=== PATIENT | female | born 1965 | race Caucasian/White ===

== ENCOUNTER 2016-08-15 09:32 | Emergency (ER) | payer MEDICARE, OTHER ==
[~2016-08-15] VITALS: Ht 165.1 cm; Wt 47.5 kg
[2016-08-15 09:34] VITALS: BP 128/82; PULSE 74; RESP 15; TEMP 97.9; O2SAT 98
--- NOTE | 2016-08-15 09:49 | PD ---
HPI Chief Complaint: Pain: Acute or Chronic Time Seen by Provider: 09:49 Travel History International Travel<30 days: No Contact w/Intl Traveler<30days: No Traveled to known affect area: No History of Present Illness HPI 50-year-old female came to the emergency room with history of left knee pain. Patient says she has been going to physical therapy and since Wednesday something was done to the knee due to which she has been having pain. No history of trauma/fall. Her physical therapist told her that she may have an ACL tear. Patient is also complaining of bilateral hip pain from all the exercise she has been doing. Vital signs are stable. [facility] Past Medical History Narrative Medical List of her past medical, surgical, social and family history was reviewed from the nursing note. Asthma: Yes Autoimmune Disease: Yes (HEP B) Anxiety: Yes Depression: Yes Heart Rhythm Problems: Yes Cardiovascular Problems: Yes Diminished Hearing: No Hepatitis: Yes Medical other: Yes (Crhon,s disease) Psychiatric: Yes Thyroid Disease: No Tetanus Vaccination: > 5 Years Influenza Vaccination: Yes ?: Not Menopausal: Yes Past Surgical History Section: Yes Social History Alcohol Use: Yes (ocassionally ) Tobacco Use: Yes (1/2 pack per day) Substance Use: No Allergies-Medications (Allergen,Severity, Reaction): Coded Allergies: Penicillin (Verified Adverse Reaction, Severe, seizure, 08/15/16) Amoxicillin (Verified Adverse Reaction, Unknown, seizure, 08/15/16) Comments List of her allergies reviewed from the nursing note. Reported Meds & Prescriptions Reported Meds & Active Scripts Active Naprosyn (Naproxen) 500 Mg Tab 500 Mg PO BID Narrative Medication List of her home medications reviewed from the nursing note. Review of Systems Except as stated in HPI: all other systems reviewed are Neg Physical Exam Narrative GENERAL: Awake, alert, no obvious distress SKIN: Focused skin assessment warm/dry. HEAD: Atraumatic. Normocephalic. EYES: Pupils equal and round. No scleral icterus. No injection or drainage. ENT: No nasal bleeding or discharge. Mucous membranes pink and moist. NECK: Trachea midline. No JVD. CARDIOVASCULAR: Regular rate and rhythm. No murmur appreciated. RESPIRATORY: No accessory muscle use. Clear to auscultation. Breath sounds equal bilaterally. GASTROINTESTINAL: Abdomen soft, non-tender, nondistended. Hepatic and splenic margins not palpable. MUSCULOSKELETAL: No obvious deformities. No clubbing. No cyanosis. No edema. Left knee does not show any swelling or effusion. No redness. Slightly decreased range of motion due to the pain. Anterior and posterior drawer test was negative NEUROLOGICAL: Awake and alert. No obvious cranial nerve deficits. Motor grossly within normal limits. Normal speech. PSYCHIATRIC: Appropriate mood and affect; insight and judgment normal. Data Data Last Documented VS Vital Signs Date Time Temp Pulse Resp B/P Pulse Ox O2 Delivery O2 Flow Rate FiO2 08/15/16 12:07 100 08/15/16 09:47 17 08/15/16 09:34 97.9 74 128/82 Orders Knee, Complete (4vws) (08/15/16 ) ^ Knee Immobilizer (08/15/16 11:36) [employer] Request For Service (08/15/16 12:08) Canvas Knee Splint (Cks) (08/15/16 ) Immobilizer Knee 20 Inch (08/15/16 ) MDM Medical Decision Making Medical Screen Exam Complete: Yes Emergency Medical Condition: Yes Medical Record Reviewed: Yes Differential Diagnosis Knee sprain, knee fracture Narrative Course 11:45 AM x-ray was within normal limits. Patient was discharged home on knee immobilizer and prescription for Naprosyn. I have given her the name and number of the orthopedist to follow-up. Procedures EKG Prior to Arrival: No Diagnosis Primary Impression: Knee sprain Qualified Code: S83.92XA - Sprain of left knee, unspecified ligament, initial encounter Referrals: Steve Payan MD 3 days Additional Instructions: Follow up with the orthopedist whose name and number has been given to you in the discharge instructions. Do not take the medications empty stomach. Drink plenty of fluid. Keep the knee immobilizer on at all times except during taking a shower or bath. Med/Other Pt SpecificInfo: Prescription(s) given Scripts Naproxen (Naprosyn)500 Mg [id number] Mg PO BID #30 TAB Ref 0 Prov:David Cabrera MD 08/15/16 Disposition: 01 DISCHARGE HOME Condition: Stable David Cabrera MD Aug 15, 2016 09:49
--- NOTE | 2016-08-15 11:12 | RADRPT ---
EXAM DATE/TIME: 08/15/2016 10:32 [place] COMPARISON: No previous studies available for comparison. INDICATIONS : Left knee pain after fall one week ago. MEDICAL HISTORY : None. SURGICAL HISTORY : None. ENCOUNTER: Initial ACUITY: 1 week PAIN SCORE: 5/10 LOCATION: Left knee. FINDINGS: Four view examination of the left knee demonstrates no evidence of fracture or dislocation. Bony min eralization is normal. The articular surfaces are intact. The suprapatellar soft tissues have a nor mal configuration. CONCLUSION: Negative for fracture or dislocation. Follow up in 7-10 days is suggested if symptoms persist. Christopher Warner MD FACR on August 15, 2016 at 11:10 Board Certified Radiologist. This report was verified electronically.
[2016-08-15] MEDS ORDERED: NAPR500 PO (11:29)
== END 2016-08-15 12:07 | disposition home or self-care (01) ==
LOC: NEPA 09:32
DX: S83.92XA Sprain of unspecified site of left knee, initial encounter (principal); F17.210 Nicotine dependence, cigarettes, uncomplicated; X50.3XXA Overexertion from repetitive movements, initial encounter; Y92.538 Other ambulatory health services establishments as the place of occurrence of the external cause; Y93.B1 Activity, exercise machines primarily for muscle strengthening; Y99.9 Unspecified external cause status
CPT/HCPCS: 73564; 99283; L1830

== ENCOUNTER 2016-08-27 12:14 | Emergency (ER) | payer MEDICARE, OTHER ==
[~2016-08-27] VITALS: Ht 165.1 cm; Wt 47.8 kg
[~2016-08-27 12:14] MED LIST: NAPR500 PO
[2016-08-27 12:16] VITALS: BP 143/86; PULSE 94; RESP 20; TEMP 98.5; O2SAT 100
--- NOTE | 2016-08-27 12:47 | PD ---
Physical Exam Time Seen by Provider: 12:45 Narrative 50 yo F with low back pain and bilat hip pain x 3 days. Hx of hip dyspalsia. Denies injury in last 3 days. Did fall 2 weeks ago. Denies urinary sx. VSS Seen in triage, awaiting bed placement. Data Data Last Documented VS Vital Signs Date Time Temp Pulse Resp B/P Pulse Ox O2 Delivery O2 Flow Rate FiO2 08/27/16 12:16 98.5 94 20 143/86 100 Room Air MDM Supervised Visit with ROSANNE: Tanja Francisco Aug 27, 2016 12:47
--- NOTE | 2016-08-27 13:08 | PD ---
HPI . chronic hip pain Chief Complaint: Pain: Acute or Chronic Time Seen by Provider: 13:08 Travel History International Travel<30 days: No Contact w/Intl Traveler<30days: No Traveled to known affect area: No History of Present Illness HPI 50-year-old female with chronic hip pain here with complaints of pain. Patient tells me that she was seen here in emergency department earlier this month and told that she needs to see orthopedic, however she does not have an appointment until the first of the month and tells me her pain is significantly worse. She is crying and asking for pain control medications. She tells me he does not have a primary care provider and wants us to try to move her appointment earlier. She denies any recent injury or trauma. She was previously seen on August 15, 2016 and told to follow-up with orthopedist. She is following with physical therapy. PFSH Past Medical History Asthma: Yes Autoimmune Disease: Yes (HEP B) Anxiety: Yes Depression: Yes Heart Rhythm Problems: Yes Cardiovascular Problems: Yes Diminished Hearing: No Hepatitis: Yes Psychiatric: Yes Thyroid Disease: No Tetanus Vaccination: < 5 Years Influenza Vaccination: Yes ?: Not Menopausal: Yes Past Surgical History Section: Yes (x2) Social History Alcohol Use: Yes (ocassionally ) Tobacco Use: Yes (1/2 pack per day) Substance Use: No Allergies-Medications (Allergen,Severity, Reaction): Coded Allergies: Penicillin (Verified Adverse Reaction, Severe, seizure, 08/27/16) Amoxicillin (Verified Adverse Reaction, Unknown, seizure, 08/27/16) Reported Meds & Prescriptions Reported Meds & Active Scripts Active Naprosyn (Naproxen) 500 Mg Tab 500 Mg PO BID Review of Systems General / Constitutional: No: Fever Eyes: No: Visual changes HENT: No: Headaches Cardiovascular: No: Chest Pain or Discomfort Respiratory: No: Shortness of Breath Gastrointestinal: No: Abdominal Pain Genitourinary: No: Dysuria Musculoskeletal: Positive: Pain (hip pain) Skin: No Rash Neurologic: No: Weakness Psychiatric: No: Depression Endocrine: No: Polydipsia Hematologic/Lymphatic: No: Easy Bruising Physical Exam Narrative GENERAL: AAO x 3, no acute distress, Well-nourished, well-developed patient. SKIN: Warm and dry. No visible rashes or bruising. HEAD: Normocephalic and atraumatic. EYES: No scleral icterus. No injection or drainage. ENT: No nasal drainage noted. Mucous membranes pink. Airway patent. NECK: Supple, trachea midline. No JVD. CARDIOVASCULAR: Regular rate and rhythm without murmurs, gallops, or rubs. RESPIRATORY: Breath sounds equal bilaterally. No accessory muscle use. No rhonchi or rales. GASTROINTESTINAL: Abdomen soft, non-tender, nondistended. EXTREMITIES: No cyanosis or edema. able to stand without difficulty. hip joint is stable without any laxity. no leg length discrepancy. I checked her sacral area and there is no bruising or pressure ulcer formation BACK: Nontender without obvious deformity. No CVA tenderness. PSYCH: AAO x 3, normal affect. Data Data Last Documented VS Vital Signs Date Time Temp Pulse Resp B/P Pulse Ox O2 Delivery O2 Flow Rate FiO2 08/27/16 12:16 98.5 94 20 143/86 100 Room Air Orders Tramadol (Ultram) (08/27/16 13:15) MDM Medical Decision Making Medical Screen Exam Complete: Yes Emergency Medical Condition: Yes Medical Record Reviewed: Yes Differential Diagnosis acute on chronic pain, less likely fracture, less likely dislocation Narrative Course 50-year-old female with chronic hip pain here with complaints of pain. Patient tells me that she was seen here in emergency department earlier this month and told that she needs to see orthopedic, however she does not have an appointment until the first of the month and tells me her pain is significantly worse. She is crying and asking for pain control medications. She tells me he does not have a primary care provider and wants us to try to move her appointment earlier. She denies any recent injury or trauma. She was previously seen on August 15, 2016 and told to follow-up with orthopedist. She is following with physical therapy. Patient seen and examined. I do not find any acute injuries on examination. Hip xray not warranted as joint is stable, no ecchymosis, no recent injury. Patient in tears requesting rx for pain meds. Explained that I cannot prescribe pain meds or move her appt up earlier. Tramadol in ED. advised to find a PCP locally to help navigate her care. Diagnosis Primary Impression: Chronic hip pain Qualified Code: M25.559 - Chronic hip pain, unspecified laterality Patient Instructions: General Instructions Additional Instructions: Please follow-up with an orthopedist as soon as possible. Try to establish with a local primary care doctor to help navigate your care. Use Tylenol or Motrin as needed for pain control. Med/Other Pt SpecificInfo: No Meds Exist/No RX given Disposition: 01 DISCHARGE HOME Condition: Stable Ivone Armendariz Aug 27, 2016 13:08 Ivone Armendariz Aug 27, 2016 13:08
[2016-08-27] MEDS ORDERED: traMADol HCL 50 MG TAB PO ONE (13:15)
== END 2016-08-27 13:36 | disposition home or self-care (01) ==
LOC: NEPK 12:14
DX: M25.552 Pain in left hip (principal); M25.551 Pain in right hip; M54.5 Low back pain
CPT/HCPCS: 99283

== ENCOUNTER 2016-10-15 10:22 | Inpatient (IN) | payer MEDICARE, OTHER ==
[~2016-10-15] VITALS: Ht 172.7 cm; Wt 50.0 kg
[2016-10-15 10:24] VITALS: BP 108/72; PULSE 104; RESP 18; TEMP 97.8; O2SAT 97
[2016-10-15] MEDS ORDERED: ONDANSETRON HCL 4 MG/2 ML VIAL IVP ONE (10:45)
[2016-10-15] MEDS ORDERED: SODIUM CHLOR 0.9% 1000 ML INJ 1,000 ML IV SCH (10:45)
[2016-10-15] MEDS ORDERED: SODIUM CHLORIDE 0.9% FLUSH 10 ML FLUSH IV FLUSH PRN ×2 (10:45→17:30)
--- NOTE | 2016-10-15 10:57 | PD ---
HPI Chief Complaint: Abdominal Pain Time Seen by Provider: 10:38 Travel History International Travel<30 days: No Contact w/Intl Traveler<30days: No Traveled to known affect area: No History of Present Illness HPI Patient is a 51 year old female with history of borderline DM, visual impairment , Crohn disease and ulcerative colitis and hip dysplasia who presents to ER with c/o of abdominal pain. Patient reports that she has had a colonoscopy by Dr. Cruz on and was told that everything looked good but biopsies were sent and are pending. Reports that she felt fine all weekend, reports that on Wednesday she began to feel sick. Reports that she has been feeling nauseous and has been vomiting since wednesday. Reports that she was able to have a "very small" bowel movement the other day. Reports that she has not been able to keep down any fluids since Wednesday. Reports diffuse abdominal pain. Denies fever/chills. Denies any sick contacts or any recent travels. PFSH Past Medical History Asthma: Yes Autoimmune Disease: Yes (HEP B) Anxiety: Yes Depression: Yes Heart Rhythm Problems: Yes Cardiovascular Problems: Yes Diabetes: Yes Diminished Hearing: No Hepatitis: Yes Psychiatric: Yes Thyroid Disease: No Tetanus Vaccination: Unknown Influenza Vaccination: No ?: Not Menopausal: Yes Tubal Ligation: Yes Past Surgical History Abdominal Surgery: No Section: Yes Social History Alcohol Use: No Tobacco Use: Yes Substance Use: No Allergies-Medications (Allergen,Severity, Reaction): Coded Allergies: Penicillin (Verified Adverse Reaction, Severe, seizure, 10/15/16) Amoxicillin (Verified Adverse Reaction, Unknown, seizure, 10/15/16) Reported Meds & Prescriptions Reported Meds & Active Scripts Active Zofran (Ondansetron HCl) 4 Mg Tab 4 Mg PO Q6HR PRN Reported Buspirone (Buspirone HCl) 5 Mg Tab 5 Mg PO TID Diclofenac Sodium ER 24 HR (Diclofenac Sodium) 100 Mg Willie 100 Mg PO DAILY PRN Trazodone (Trazodone HCl) 50 Mg Tab 50 Mg PO HS PRN Emetrol Oral Solution (Phosporated Carb(Dext-Fructos)) 118 Ml Solution 15-30 Ml PO DIRECTED PRN Do not drink any other fluids right before or for 15 minutes after taking a dose of Emetrol solution. Take Emetrol solution every 15 minutes or until symptoms go away. Do not take Emetrol solution for more than 1 hour (5 doses) without contacting your doctor. [place] (Hydrocodone-Acetaminophen) 5-325 mg Tab 1-2 Tab PO Q4HR PRN Zoloft (Sertraline HCl) 50 Mg Tab 50 Mg PO DAILY Review of Systems General / Constitutional: No: Fever Eyes: No: Visual changes HENT: No: Headaches Cardiovascular: No: Chest Pain or Discomfort Respiratory: No: Shortness of Breath Gastrointestinal: Positive: Nausea, Vomiting, Abdominal Pain Genitourinary: No: Dysuria Musculoskeletal: No: Pain Skin: No Rash Neurologic: No: Weakness Psychiatric: No: Depression Endocrine: No: Polydipsia Hematologic/Lymphatic: No: Easy Bruising Physical Exam Narrative GENERAL: moderate distress SKIN: Focused skin assessment warm/dry. HEAD: Atraumatic. Normocephalic. EYES: Pupils equal and round. No scleral icterus. No injection or drainage. ENT: No nasal bleeding or discharge. Mucous membranes pink and moist. NECK: Trachea midline. No JVD. CARDIOVASCULAR: Tachycardic. No murmur appreciated. RESPIRATORY: No accessory muscle use. Clear to auscultation. Breath sounds equal bilaterally. GASTROINTESTINAL: Abdomen soft, diffuse abdominal pain with guarding on exam hepatic and splenic margins not palpable. MUSCULOSKELETAL: No obvious deformities. No clubbing. No cyanosis. No edema. NEUROLOGICAL: Awake and alert. No obvious cranial nerve deficits. Motor grossly within normal limits. Normal speech. PSYCHIATRIC: Appropriate mood and affect; insight and judgment normal. Data Data Last Documented VS Vital Signs Date Time Temp Pulse Resp B/P Pulse Ox O2 Delivery O2 Flow Rate FiO2 10/15/16 14:18 98.5 105 15 124/86 99 Room Air Orders Complete Blood Count With Diff (10/15/16 10:45) Comprehensive Metabolic Panel (10/15/16 10:45) Lipase (10/15/16 10:45) Lactic Acid (10/15/16 10:45) Prothrombin Time / Inr (Pt) (10/15/16 10:45) Act Partial Throm Time (Ptt) (10/15/16 10:45) Urinalysis - C+S If Indicated (10/15/16 10:45) Ct Abd/Pel W Iv Contrast(Rout) (10/15/16 10:45) Iv Access Insert/Monitor (10/15/16 10:45) Ecg Monitoring (10/15/16 10:45) Oximetry (10/15/16 10:45) NPO (10/15/16 10:45) Ondansetron Inj (Zofran Inj) (10/15/16 10:45) Sodium Chlor 0.9% 1000 Ml Inj (Ns 1000 M (10/15/16 10:45) Sodium Chloride 0.9% Flush (Ns Flush) (10/15/16 10:45) Electrocardiogram (10/15/16 10:45) Chest, Single Ap (10/15/16 10:45) Oral Contrast - Adult (10/15/16 10:52) Blood Culture (10/15/16 12:16) Diatrizoate Liq ( Gastroview Liq) (10/15/16 13:28) Diatrizoate Liq ( Gastroview Liq) (10/15/16 13:29) Ondansetron Inj (Zofran Inj) (10/15/16 14:15) Sodium Chlor 0.9% 1000 Ml Inj (Ns 1000 M (10/15/16 14:15) Iohexol 350 Inj (Omnipaque 350 Inj) (10/15/16 15:02) Lactic Acid Sepsis Protocol (10/15/16 15:35) Urine Culture (10/15/16 15:36) Ceftriaxone Inj (Rocephin Inj) (10/15/16 15:45) Levofloxacin (Levaquin) (10/15/16 15:45) Sodium Chlor 0.9% 1000 Ml Inj (Ns 1000 M (10/15/16 15:45) Labs Laboratory Tests Test 10/15/16 10/15/16 10/15/16 10:45 12:00 15:35 White Blood Count 11.2 TH/MM3 Red Blood Count 4.13 MIL/MM3 Hemoglobin 12.1 GM/DL Hematocrit 37.4 % Mean Corpuscular Volume 90.6 FL Mean Corpuscular Hemoglobin 29.3 PG Mean Corpuscular Hemoglobin 32.4 % Concent Red Cell Distribution Width 18.0 % Platelet Count 299 TH/MM3 Mean Platelet Volume 8.7 FL Neutrophils (%) (Auto) 79.4 % Lymphocytes (%) (Auto) 10.6 % Monocytes (%) (Auto) 9.7 % Eosinophils (%) (Auto) 0.0 % Basophils (%) (Auto) 0.3 % Neutrophils # (Auto) 8.9 TH/MM3 Lymphocytes # (Auto) 1.2 TH/MM3 Monocytes # (Auto) 1.1 TH/MM3 Eosinophils # (Auto) 0.0 TH/MM3 Basophils # (Auto) 0.0 TH/MM3 CBC Comment DIFF FINAL Differential Comment Prothrombin Time 10.4 SEC Prothromb Time International 0.9 RATIO Ratio Activated Partial 24.0 SEC Thromboplast Time Sodium Level 133 MEQ/L Potassium Level 3.2 MEQ/L Chloride Level 96 MEQ/L Carbon Dioxide Level 25.3 MEQ/L Anion Gap 12 MEQ/L Blood Urea Nitrogen 35 MG/DL Creatinine 1.18 MG/DL Estimat Glomerular Filtration 48 ML/MIN Rate Random Glucose 163 MG/DL Lactic Acid Level 2.9 mmol/L 1.0 mmol/L Calcium Level 10.1 MG/DL Total Bilirubin 1.2 MG/DL Aspartate Amino Transf 40 U/L (AST/SGOT) Alanine Aminotransferase 31 U/L (ALT/SGPT) Alkaline Phosphatase 107 U/L Total Protein 9.3 GM/DL Albumin 4.7 GM/DL Lipase 218 U/L Urine Color YELLOW Urine Turbidity HAZY Urine pH 6.5 Urine Specific [place] 1.027 Urine Protein 100 mg/dL Urine Glucose (UA) NEG mg/dL Urine Ketones 10 mg/dL Urine Occult Blood MOD Urine Nitrite NEG Urine Bilirubin NEG Urine Urobilinogen 2.0 MG/DL Urine Leukocyte Esterase MOD Urine RBC 2 /hpf Urine WBC 7 /hpf Urine Squamous Epithelial 10 /hpf Cells Urine Bacteria OCC /hpf Urine Hyaline Casts 8 /lpf Urine Mucus FEW /lpf Urine Yeast (Budding) RARE Microscopic Urinalysis Comment CULT NOT INDICATED MDM Medical Decision Making Medical Screen Exam Complete: Yes Emergency Medical Condition: Yes Interpretation(s) EKG at 1051: Sinus tach at 104bpm, nonspecific st and t wave changes Vital Signs Date Time Temp Pulse Resp B/P Pulse Ox O2 Delivery O2 Flow Rate FiO2 10/15/16 10:33 15 10/15/16 10:24 97.8 104 18 108/72 97 Differential Diagnosis Differential for abdominal pain could be from gastroenteritis, ulcerative colitis, Crohn's disease, ischemic bowel, electrolyte abnormality, UTI, colon perforation from colonscopy though unlikely Narrative Course Patient is a 51 year old female with history of ulcerative colitis and Crohn's disease who presents to ER with complaints of nausea and vomiting since Wednesday. Patient reports that she has not been able to eat or drink anything since then and now has diffuse abdominal pain. Patient did recently have a colonscopy by Dr. Cruz on . Patient is uncomfortable appearing on evaluation. Plan to obtain lab work including x-ray of the chest to rule out free air in the abdomen. CT abdomen and pelvis ordered to rule out further pathology of abdominal pain. We'll give patient IV fluids and IV pain medications Vital Signs Date Time Temp Pulse Resp B/P Pulse Ox O2 Delivery O2 Flow Rate FiO2 10/15/16 14:18 98.5 105 15 124/86 99 Room Air 10/15/16 11:04 98.7 109 18 111/79 100 Room Air 10/15/16 10:33 15 10/15/16 10:24 97.8 104 18 108/72 97 Laboratory Tests Test 10/15/16 10/15/16 10:45 12:00 White Blood Count 11.2 TH/MM3 (4.0-11.0) Red Blood Count 4.13 MIL/MM3 (4.00-5.30) Hemoglobin 12.1 GM/DL (11.6-15.3) Hematocrit 37.4 % (35.0-46.0) Mean Corpuscular Volume 90.6 FL (80.0-100.0) Mean Corpuscular Hemoglobin 29.3 PG (27.0-34.0) Mean Corpuscular Hemoglobin 32.4 % Concent (32.0-36.0) Red Cell Distribution Width 18.0 % (11.6-17.2) Platelet Count 299 TH/MM3 (150-450) Mean Platelet Volume 8.7 FL (7.0-11.0) Neutrophils (%) (Auto) 79.4 % (16.0-70.0) Lymphocytes (%) (Auto) 10.6 % (9.0-44.0) Monocytes (%) (Auto) 9.7 % (0.0-8.0) Eosinophils (%) (Auto) 0.0 % (0.0-4.0) Basophils (%) (Auto) 0.3 % (0.0-2.0) Neutrophils # (Auto) 8.9 TH/MM3 (1.8-7.7) Lymphocytes # (Auto) 1.2 TH/MM3 (1.0-4.8) Monocytes # (Auto) 1.1 TH/MM3 (0-0.9) Eosinophils # (Auto) 0.0 TH/MM3 (0-0.4) Basophils # (Auto) 0.0 TH/MM3 (0-0.2) CBC Comment DIFF FINAL Differential Comment Prothrombin Time 10.4 SEC (9.8-11.6) Prothromb Time International 0.9 RATIO Ratio Activated Partial 24.0 SEC Thromboplast Time (24.3-30.1) Sodium Level 133 MEQ/L (136-145) Potassium Level 3.2 MEQ/L (3.5-5.1) Chloride Level 96 MEQ/L (98-107) Carbon Dioxide Level 25.3 MEQ/L (21.0-32.0) Anion Gap 12 MEQ/L (5-15) Blood Urea Nitrogen 35 MG/DL (7-18) Creatinine 1.18 MG/DL (0.50-1.00) Estimat Glomerular Filtration 48 ML/MIN (>89) Rate Random Glucose 163 MG/DL (74-106) Lactic Acid Level 2.9 mmol/L (0.4-2.0) Calcium Level 10.1 MG/DL (8.5-10.1) Total Bilirubin 1.2 MG/DL (0.2-1.0) Aspartate Amino Transf 40 U/L (15-37) (AST/SGOT) Alanine Aminotransferase 31 U/L (10-53) (ALT/SGPT) Alkaline Phosphatase 107 U/L (45-117) Total Protein 9.3 GM/DL (6.4-8.2) Albumin 4.7 GM/DL (3.4-5.0) Lipase 218 U/L (73-393) Urine Color YELLOW (YELLW/STRAW) Urine Turbidity HAZY (CLEAR) Urine pH 6.5 (5.0-8.5) Urine Specific [place] 1.027 (1.002-1.035) Urine Protein 100 mg/dL (NEG-TRACE) Urine Glucose (UA) NEG mg/dL (NEG) Urine Ketones 10 mg/dL (NEG) Urine Occult Blood MOD (NEG) Urine Nitrite NEG (NEG) Urine Bilirubin NEG (NEG) Urine Urobilinogen 2.0 MG/DL (LESS THAN 2.0) Urine Leukocyte Esterase MOD (NEG) Urine RBC 2 /hpf (0-3) Urine WBC 7 /hpf (0-5) Urine Squamous Epithelial 10 /hpf (0-5) Cells Urine Bacteria OCC /hpf (NONE) Urine Hyaline Casts 8 /lpf (RARE) Urine Mucus FEW /lpf (OCC) Urine Yeast (Budding) RARE (NONE) Microscopic Urinalysis Comment CULT NOT INDICATED Last Impressions Chest X-Ray 10/15/16 1045 Signed Impressions: Service Date/Time: , October 15, 2016 11:00 - CONCLUSION: Old granulomatous disease. No acute cardiopulmonary disease identified. Eugene Delacruz MD CT abdomen and pelvis shows 1. 8 cm left adnexal cystic mass 2. Hepatic steatosis 3. Evidence of chronic pancreatitis 4. Multiple nonobstructing renal calculi I reviewed all CT results as well as incidental findings with patient, a copy of her studies were given to her. Patient reports that she is feeling much better at this time. It is soft, nontender, nondistended, no peritoneal signs. Patient's initial lactic acid was 2.9, I am unsure why this was elevated, there are no signs of any acute intra-abdominal pathology including ischemic gut. Lactic acid could be secondary to hypoperfusion from her nausea vomiting and dehydration. Plan to repeat lactic acid and if negative, will discharge patient to home. Patient was also given a glass of ice water to see if she can tolerate fluids prior to discharge Patient was reevaluated, lactic acid is 1.0, despite 3L IVF, patient still nauseous and vomiting, she is unable to keep down fluids. will require obs Case reviewed with Dr. 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
[2016-10-15 11:04] VITALS: BP 111/79; PULSE 109; RESP 18; TEMP 98.7; O2SAT 100
[2016-10-15] MEDS ORDERED: ZOLO50TA PO (11:19)
[2016-10-15] MEDS ORDERED: NORC5TAB PO (11:20)
[2016-10-15] MEDS ORDERED: BUSP5TAB PO (11:20)
[2016-10-15] MEDS ORDERED: EMETSOL PO (11:20)
[2016-10-15] MEDS ORDERED: TRAZ50TA12 PO (11:20)
[2016-10-15] MEDS ORDERED: DICL100T PO (11:20)
[2016-10-15 11:21] LABS: AUTOMATED NEUTROPHIL # 8.9 TH/MM3 (1.8-7.7); BASOPHIL % 0.3 % (0.0-2.0); HEMATOCRIT 37.4 % (35.0-46.0); HEMO FLAGS DIFF FINAL; LYMPH % 10.6 % (9.0-44.0); LYMPHOCYTE # 1.2 TH/MM3 (1.0-4.8); MEAN CELL VOLUME 90.6 FL (80.0-100.0); MEAN CORPUSCULAR HEMOGLOBIN 29.3 PG (27.0-34.0); MEAN CORPUSCULAR HGB CONC 32.4 % (32.0-36.0); MONO % 9.7 % (0.0-8.0); NEUT % 79.4 % (16.0-70.0); PLATELET COUNT 299 TH/MM3 (150-450); RED BLOOD COUNT 4.13 MIL/MM3 (4.00-5.30); WHITE BLOOD COUNT 11.2 TH/MM3 (4.0-11.0)
--- NOTE | 2016-10-15 11:30 | RADRPT ---
EXAM DATE/TIME: 10/15/2016 11:00 [facility] COMPARISON: No previous studies available for comparison. INDICATIONS : Cough and vomiting since Wednesday. MEDICAL HISTORY : Diabetes mellitus type II. Emphysema. Hepatitis B. Afib. SURGICAL HISTORY : None. ENCOUNTER: Initial ACUITY: 4 - 6 days PAIN SCORE: 0/10 LOCATION: Bilateral chest FINDINGS: Single AP view of the chest. Calcified granuloma in the right upper lung. The lungs are otherwise maria m ar. Cardiomediastinal silhouette within normal limits. No evidence of pleural effusion or pneumothora x. CONCLUSION: Old granulomatous disease. No acute cardiopulmonary disease identified. Eugene Delacruz MD on October 15, 2016 at 11:26 Board Certified Radiologist. This report was verified electronically.
[2016-10-15 11:37] LABS: ALT (GPT) 31 U/L (10-53); ANION GAP 12 MEQ/L (5-15); AST (GOT) 40 U/L (15-37); BICARBONATE 25.3 MEQ/L (21.0-32.0); BLOOD UREA NITROGEN 35 MG/DL (7-18); CHLORIDE 96 MEQ/L (98-107); GLOMERULAR FILTRATION RATE 48 ML/MIN (>89); POTASSIUM 3.2 MEQ/L (3.5-5.1); SODIUM (NA) 133 MEQ/L (136-145)
[2016-10-15 11:39] LABS: ALKALINE PHOSPHATASE 107 U/L (45-117); TOTAL BILIRUBIN ADULT 1.2 MG/DL (0.2-1.0)
[2016-10-15 11:41] LABS: INTERNATIONAL NORMALIZED RATIO 0.9 RATIO; PROTHROMBIN TIME - PATIENT 10.4 SEC (9.8-11.6)
[2016-10-15 12:35] LABS: BACTERIA, URINE OCC /hpf; BLOOD, URINE MOD (NEG); COMMENT (UR) CULT NOT INDICATED; CULTURE IF INDICATED CULT NOT INDICATED; GLUCOSE,URINE NEG (NEG); HYALINE CAST, URINE 8 /lpf (RARE); KETONE, URINE 10 mg/dL (NEG); MUCUS URINE FEW /lpf (OCC); NITRITE,URINE NEG (NEG); PH, URINE 6.5 (5.0-8.5); SQUAMOUS EPITHELIAL CELL URINE 10 /hpf (0-5); URINE COLOR YELLOW (YELLW/STRAW)
[2016-10-15] MEDS ORDERED: DIATRIZOATE MEGLUM/DIATRIZOATE SOD 9 ML CUP ONE ×2 (13:28→13:29)
[2016-10-15] MEDS ORDERED: SODIUM CHLOR 0.9% 1000 ML INJ 1,000 ML IV ONE ×2 (14:15→15:45)
[2016-10-15] MEDS ORDERED: ONDANSETRON HCL 4 MG/2 ML VIAL IV PUSH ONE (14:15)
[2016-10-15 14:18] VITALS: BP 124/86; PULSE 105; RESP 15; TEMP 98.5; O2SAT 99
[2016-10-15] MEDS ORDERED: IOHEXOL 350 MG/ML 10 ML VIAL (for RAD DIAG) IV ONE (15:02)
--- NOTE | 2016-10-15 15:31 | RADRPT ---
EXAM DATE/TIME: 10/15/2016 14:45 [facility] COMPARISON: No previous studies available for comparison. INDICATIONS : Abdomen pain nausea vomiting since Harish. IV CONTRAST: 80 cc Omnipaque 350 (iohexol) IV ORAL CONTRAST: Partial prescribed oral contrast ingested. RADIATION DOSE: 7.76 CTDIvol (mGy) MEDICAL HISTORY : Hepatitis B. Cardiovascular disease Diabetes SURGICAL HISTORY : None. ENCOUNTER: Initial ACUITY: 4 - 6 days PAIN SCALE: 10/10 LOCATION: Abdomen TECHNIQUE: Volumetric scanning of the abdomen and pelvis was performed. Using automated exposure control and ad justment of the mA and/or kV according to patient size, radiation dose was kept as low as reasonably achievable to obtain optimal diagnostic quality images. FINDINGS: LOWER LUNGS: The visualized lower lungs are clear. LIVER: Diffuse fatty infiltration of the liver. No focal mass. Gallbladder is collapsed with nonspecific dif fusely enhancing wall. No pericholecystic inflammatory change seen. SPLEEN: Normal size without lesion. PANCREAS: Multiple calcifications in the pancreatic head suggesting chronic pancreatitis. KIDNEYS: Multiple punctate nonobstructing calculi in the kidneys. ADRENAL GLANDS: Within normal limits. VASCULAR: There is no aortic aneurysm. BOWEL/MESENTERY: No evidence of bowel dilatation. No free air or free fluid. Appendix not identified. ABDOMINAL WALL: Within normal limits. RETROPERITONEUM: There is no lymphadenopathy. BLADDER: No wall thickening or mass. REPRODUCTIVE: 8.2 x 7.6 cm cystic mass in the left adnexa. Uterus and right adnexal regions within normal limits. INGUINAL: There is no lymphadenopathy or hernia. MUSCULOSKELETAL: Within normal limits for patient age. CONCLUSION: 1. 8 cm left adnexal cystic mass. 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 No ascites or lymphadenopathy. 2. Hepatic steatosis. 3. Evidence of chronic pancreatitis. 4. Multiple nonobstructing renal calculi. Eugene Delacruz MD on October 15, 2016 at 15:24 Board Certified Radiologist. This report was verified electronically.
[2016-10-15] MEDS ORDERED: cefTRIAXone INJ 1,000 MG in SODIUM CHLORIDE 0.9% INJ 100 ML IV ONE (15:45)
[2016-10-15] MEDS ORDERED: LEVOFLOXACIN 500 MG TAB PO ONE (15:45)
[2016-10-15] MEDS ORDERED: ZOFR4TAB PO (15:46)
[2016-10-15] MEDS ORDERED: ONDANSETRON HCL 4 MG/2 ML VIAL IV PUSH PRN (18:30)
--- NOTE | 2016-10-15 18:38 | HHI.HP ---
[facility] Service [facility] Primary Care Physician No Primary Care Physician Admission Diagnosis Intractable Nausea and vomiting Diagnoses: Travel History International Travel<30 Days: No Contact w/Intl Traveler <30 Da: No Traveled to Known Affected Are: No Sepsis Criteria SIRS Criteria (2 or more): Heart rate over 90 History of Present Illness Patient is a 51-year-old female with primary medical history of borderline diabetes, Crohn's disease, ulcerative colitis, bilateral hip dysplasia, hepatitis B, hypertension who came into the hospital secondary to worsening abdominal pain, nausea and vomiting. States she has been having abdominal pain for quite some time that she went to her propagator laborer Dr. Ramachandran and had a colonoscopy done last . However, Wednesday she started to have continued abdominal pain, nausea, vomiting unable to hold down any of her food or drinks and is very weak. He reports vomiting every 1-1/2 hour has continued. States that she thought it started to go away but the pain and the nausea and vomiting is worse that she came in to be evaluated. Abdominal pain rated 9/10 radiating to the back, aggravated by mouth intake, unrelieved by anything. Patient has been given Zofran and she states that it helped her with the vomiting she is just nauseous but not as bad. She is also not voiding as much secondary to poor by mouth intake and last good bowel movement was Wednesday. States she has some pasty pudding-like stool occasionally but because she did not have any meals she is expecting smaller BMs. Complains of dizziness when standing up, headaches and believes that this is due to her vomiting. Denies fevers, chills, chest pain, palpitations, dysuria, hematuria. LMP: 12 years ago Labs are reviewed. WBC slightly elevated 11.2, hyponatremia 133, hypokalemia 3.2, chloride 96, BUN 35, creatinine 1.18, glucose 163 Lactate this a.m. 2.9, repeat lactate 1.0 Total bili 1.2, AST 40 Chest x-ray showed old granulomatous disease. No acute cardiopulmonary disease identified Abdominal and pelvic CT showed 1. 8 CM left adnexal cystic mass. 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 No side effects or lymphadenopathy. 2. Hepatic steatosis. 3. Evidence of chronic pancreatitis. 4. Multiple nonobstructing renal calculi Review of Systems Except as stated in HPI: all other systems reviewed are Neg Past Family Social History Past Medical History Borderline diabetes on metformin and dietary control Visual impairment, optic nerve damage genetic Crohn's disease Ulcerative colitis Hip dysplasia bilateral Hep B Ovarian cyst Hypertension Anxiety depression Mitral valve prolapse Past Surgical History Colonoscopy 2 C-sections Right knee repair Reported Medications Reported Meds & Active Scripts Active Zofran (Ondansetron HCl) 4 Mg Tab 4 Mg PO Q6HR PRN Reported Buspirone (Buspirone HCl) 5 Mg Tab 5 Mg PO TID Diclofenac Sodium ER 24 HR (Diclofenac Sodium) 100 Mg Willie 100 Mg PO DAILY PRN Trazodone (Trazodone HCl) 50 Mg Tab 50 Mg PO HS PRN Emetrol Oral Solution (Phosporated Carb(Dext-Fructos)) 118 Ml Solution 15-30 Ml PO DIRECTED PRN Do not drink any other fluids right before or for 15 minutes after taking a dose of Emetrol solution. Take Emetrol solution every 15 minutes or until symptoms go away. Do not take Emetrol solution for more than 1 hour (5 doses) without contacting your doctor. [place] (Hydrocodone-Acetaminophen) 5-325 mg Tab 1-2 Tab PO Q4HR PRN Zoloft (Sertraline HCl) 50 Mg Tab 50 Mg PO DAILY Allergies: Coded Allergies: Penicillin (Verified Adverse Reaction, Severe, seizure, 10/15/16) Amoxicillin (Verified Adverse Reaction, Unknown, seizure, 10/15/16) Active Ordered Medications Current Medications Medications (Trade) Dose Ordered Sig/Jyoti Route Start Time Stop Time Status Last Admin (NS Flush) 2 ml UNSCH PRN IV FLUSH 10/15/16 10:45 (NS Flush) 2 ml UNSCH PRN IV FLUSH 10/15/16 17:30 (NS Flush) 2 ml BID IV FLUSH 10/15/16 21:00 Family History Both grandmothers have diabetes Mother has hypertension Dad Unknown medical history Social History Occasional alcohol use Current Smoker, half a pack a day, trying to quit Denies illicit drug use Physical Exam Vital Signs Vital Signs Date Time Temp Pulse Resp B/P Pulse Ox O2 Delivery O2 Flow Rate FiO2 10/15/16 14:18 98.5 105 15 124/86 99 Room Air 10/15/16 11:04 98.7 109 18 111/79 100 Room Air 10/15/16 10:33 15 10/15/16 10:24 97.8 104 18 108/72 97 Physical Exam GENERAL: This is a pleasant, well-nourished, well-developed patient, in no apparent distress. SKIN: No rashes, ecchymoses or lesions. Warm and dry. HEAD: Atraumatic. Normocephalic. No temporal or scalp tenderness. EYES: Pupils equal round and reactive. Extraocular motions intact. No scleral icterus. No injection or drainage. ENT: Nose without bleeding. Throat without erythema. Uvula midline. Airway patent. NECK: Trachea midline. No JVD or lymphadenopathy. CARDIOVASCULAR: Regular rate and rhythm without 2/6 murmurs, gallops, or rubs. RESPIRATORY: Clear to auscultation. Breath sounds equal bilaterally. No wheezes , rales, or rhonchi. GASTROINTESTINAL: Abdomen soft,nondistended. Tender to light palpation, left lateral and left costovertebral tenderness. MUSCULOSKELETAL: Extremities without clubbing, cyanosis, or edema. No joint tenderness, effusion, or edema noted. NEUROLOGICAL: Awake and alert. Mild anxiety noted. Oriented to place, person, time Motor and sensory grossly within normal limits. Normal speech. Laboratory Laboratory Tests Test 10/15/16 10/15/16 10/15/16 10:45 12:00 15:35 White Blood Count 11.2 Red Blood Count 4.13 Hemoglobin 12.1 Hematocrit 37.4 Mean Corpuscular Volume 90.6 Mean Corpuscular Hemoglobin 29.3 Mean Corpuscular Hemoglobin 32.4 Concent Red Cell Distribution Width 18.0 Platelet Count 299 Mean Platelet Volume 8.7 Neutrophils (%) (Auto) 79.4 Lymphocytes (%) (Auto) 10.6 Monocytes (%) (Auto) 9.7 Eosinophils (%) (Auto) 0.0 Basophils (%) (Auto) 0.3 Neutrophils # (Auto) 8.9 Lymphocytes # (Auto) 1.2 Monocytes # (Auto) 1.1 Eosinophils # (Auto) 0.0 Basophils # (Auto) 0.0 CBC Comment DIFF FINAL Differential Comment Prothrombin Time 10.4 Prothromb Time International 0.9 Ratio Activated Partial 24.0 Thromboplast Time Sodium Level 133 Potassium Level 3.2 Chloride Level 96 Carbon Dioxide Level 25.3 Anion Gap 12 Blood Urea Nitrogen 35 Creatinine 1.18 Estimat Glomerular Filtration 48 Rate Random Glucose 163 Lactic Acid Level 2.9 1.0 Calcium Level 10.1 Total Bilirubin 1.2 Aspartate Amino Transf 40 (AST/SGOT) Alanine Aminotransferase 31 (ALT/SGPT) Alkaline Phosphatase 107 Total Protein 9.3 Albumin 4.7 Lipase 218 Urine Color YELLOW Urine Turbidity HAZY Urine pH 6.5 Urine Specific [place] 1.027 Urine Protein 100 Urine Glucose (UA) NEG Urine Ketones 10 Urine Occult Blood MOD Urine Nitrite NEG Urine Bilirubin NEG Urine Urobilinogen 2.0 Urine Leukocyte Esterase MOD Urine RBC 2 Urine WBC 7 Urine Squamous Epithelial 10 Cells Urine Bacteria OCC Urine Hyaline Casts 8 Urine Mucus FEW Urine Yeast (Budding) RARE Microscopic Urinalysis Comment CULT NOT INDICATED Date/Time Procedure Status Source Growth 10/15/16 12:16 Aerobic Blood Culture Received Blood Peripheral Pending 10/15/16 12:16 Anaerobic Blood Culture Received Blood Peripheral Pending Result Diagram: 10/15/16 1045 10/15/16 1045 Imaging Last Impressions Chest X-Ray 10/15/16 1045 Signed Impressions: Service Date/Time: October 11:00 - CONCLUSION: Old granulomatous disease. No acute cardiopulmonary disease identified. Eugene Delacruz MD Abdomen/Pelvis CT 10/15/16 1045 Signed Impressions: Service Date/Time: October 14:45 - CONCLUSION: 1. 8 cm left adnexal cystic mass. 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 No ascites or lymphadenopathy. 2. Hepatic steatosis. 3. Evidence of chronic pancreatitis. 4. Multiple nonobstructing renal calculi. Eugene Delacruz MD Assessment and Plan Problem List: (1) Intractable nausea and vomiting ICD Code: R11.2 Status: Acute (2) Pancreatitis, chronic ICD Code: K86.1 Status: Acute (3) Pancreatitis, acute ICD Code: K85.90 Status: Acute Assessment and Plan Patient is a 51-year-old female with primary medical history of borderline diabetes, Crohn's disease, ulcerative colitis, bilateral hip dysplasia, hepatitis B, hypertension who came into the hospital secondary to worsening abdominal pain, nausea and vomiting. Pancreatitis, acute on chronic - Abdominal pain, nausea, vomiting, tachycardia - Abdominal and pelvic CT showed 1. 8 CM left adnexal cystic mass. 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 No side effects or lymphadenopathy. 2. Hepatic steatosis. 3. Evidence of chronic pancreatitis. 4. Multiple nonobstructing renal calculi - Lipase 218 - Nothing by mouth for now - Zofran for nausea - Pantoprazole 40 mg IV daily - IV fluids NS 100ml/hr for hydration - IV pain medication morphine - Consult GI Dr. Cha, had colonoscopy done recently Acute kidney injury Tachycardia - Possibly secondary to dehydration - EKG reviewed showed atrial tachycardia with short CO interval, no QT prolongation - IV fluids for hydration - Avoid nephrotoxins - Check BMP Hypokalemia - IV potassium replacement - Check BMP tomorrow Hyponatremia - IV fluids for now - Check BMP tomorrow Cough - Chest x-ray showed old granulomatous disease. No acute cardiopulmonary disease identified - Reports seasonal allergies taking Claritin at home - Start Flonase History of hypertension - Monitor BP trend. Not on any medications History of hepatitis B - Hepatic steatosis. Total bili 1.2, AST 40, ALT 31, alkaline phosphatase 107 Borderline DM - Diet controlled - Check HgA1C - Insulin sliding scale. Monitor Accu-Cheks. - Monitor for hypoglycemia. - If blood glucose is low may change fluids to D5 NS DVT prop SCD Attestation Patient seen and examined with GARRETT Skelton. The exam, history, and the medical decision-making described in the above note were completed with the assistance of the dictating practitioner. I attest that I had a [id number] encounter with the patient on the same day, and personally performed all of the history, exam, or medical decision making. Discussed case with him thoroughly after seeing the patient, reviewed and agreed with the plan. Please see addendum in History, Physical examination and Plan. See below for any errata/ additional input: This is a 51-year-old female with borderline diabetes, Crohn's disease, ulcerative colitis, hepatitis B and hypertension presenting with worsening abdominal pain. She has seen gastroenterology in the past as outpatient. However she continued to have abdominal pain, nausea and vomiting. Patient denies any fever but has a nonproductive cough which she attributes to allergy. Patient denies any diarrhea, urinary symptoms including dysuria frequency and urgency. Mild distress secondary to pain Regular rate and rhythm Clear breath sounds Mild tenderness on palpation of the epigastric area, mild CVA tenderness. Alert awake and oriented. -Nothing by mouth for now, consult GI, continue IVF. Recheck BMP, CBC, and lipase tomorrow. Stop antibiotics. Urinalysis is positive however asymptomatic. Replace electrolytes. Continue normal saline for hyponatremia. Protonix. Code Status Full code Discussed Condition With Patient, nursing, Dr. Dobbs Physician Certification 2 Midnight Certification Type: Admission for Inpatient Services Order for Inpatient Services The services are ordered in accordance with Medicare regulations or non- Medicare payer requirements, as applicable. In the case of services not specified as inpatient-only, they are appropriately provided as inpatient services in accordance with the 2-midnight benchmark. Estimated LOS (days): 2 days is the estimated time the patient will need to remain in the hospital, assuming treatment plan goals are met and no additional complications. Post-Hospital Plan: Home Lalo Cash Oct 15, 2016 18:38 Flavia Dobbs MD Oct 15, 2016 18:58
[2016-10-15] MEDS ORDERED: DEXTROSE 50% IN WATER 50 ML VIAL(D50) IV PRN (18:45)
[2016-10-15] MEDS ORDERED: GLUCAGON 1 MG/ML VIAL OTHER PRN (18:45)
[2016-10-15 19:25] VITALS: BP 118/85; PULSE 93; RESP 18; O2SAT 100
[2016-10-15] MEDS: SODIUM CHLOR 0.9% 1000 ML INJ 1,000 ML IV SCH (19:25)
[2016-10-15] MEDS: PANTOPRAZOLE SODIUM 40 MG VIAL IV PUSH SCH (19:25)
[2016-10-15] MEDS: SODIUM CHLORIDE 0.9% FLUSH 10 ML FLUSH IV FLUSH SCH (21:00)
[2016-10-15] MEDS: INSULIN ASPART SUPPLEMENTAL SCALE SQ SCH (21:00)
[2016-10-15] MEDS: POTASSIUM CHLOR 20 MEQ PREMIX 100 ML IV SCH ×2 (21:40→23:11)
[2016-10-15] MEDS: FLUTICASONE PROPIONATE 50 MCG/ACT 16 GM NASAL SPRAY NASAL SCH (21:41)
[2016-10-15 22:21] LABS: HEMOGLOBIN A1a 1.1 %; HEMOGLOBIN A1b 1.6 %; HEMOGLOBIN Ao 84.3 %; HEMOGLOBIN LA1C 2.8 %; HEMOGLOBIN P3 5.6 %
[2016-10-15] MEDS: MORPHINE SULFATE 8 MG/ML INJ IV PUSH PRN (23:11)
[2016-10-15 23:59] VITALS: BP 136/71; PULSE 92; RESP 20; TEMP 97; O2SAT 97
[2016-10-16] VITALS: BP 113/67; PULSE 84; RESP 20; TEMP 98; O2SAT 95
[2016-10-16 04:00] VITALS: BP 139/79; PULSE 77; RESP 18; TEMP 98; O2SAT 98
[2016-10-16] MEDS: SODIUM CHLOR 0.9% 1000 ML INJ 1,000 ML IV SCH ×3 (05:27→14:07)
[2016-10-16] MEDS: MORPHINE SULFATE 8 MG/ML INJ IV PUSH PRN ×3 (05:37→14:12)
[2016-10-16] MEDS: INSULIN ASPART SUPPLEMENTAL SCALE SQ SCH ×4 (05:46→19:59)
[2016-10-16 08:00] VITALS: BP 121/75; PULSE 75; RESP 20; TEMP 96.8; O2SAT 98
--- NOTE | 2016-10-16 08:18 | HHI.PR ---
Subjective Remarks In bed, says she is still with nausea however did not vomit. Has epigastric abdominal pain radiating to the back. No fever or chills. No chest pain or sob. Objective Vitals Vital Signs Date Time Temp Pulse Resp B/P Pulse Ox O2 Delivery O2 Flow Rate FiO2 10/16/16 05:42 18 10/16/16 04:00 98.0 77 18 139/79 98 10/16/16 00:00 98.0 84 20 113/67 95 10/15/16 23:59 97.0 92 20 136/71 97 10/15/16 19:25 93 18 118/85 100 Room Air 10/15/16 14:18 98.5 105 15 124/86 99 Room Air 10/15/16 11:04 98.7 109 18 111/79 100 Room Air 10/15/16 10:33 15 10/15/16 10:24 97.8 104 18 108/72 97 I/O 10/15/16 10/15/16 10/15/16 10/16/16 10/16/16 10/16/16 07:00 15:00 23:00 07:00 15:00 23:00 Output Total 450 ml Balance -450 ml Output Urine Total 450 ml Result Diagram: 10/15/16 1045 10/15/16 1045 Imaging Last Impressions Chest X-Ray 10/15/16 1045 Signed Impressions: Service Date/Time: October 11:00 - CONCLUSION: Old granulomatous disease. No acute cardiopulmonary disease identified. Eugene Delacruz MD Abdomen/Pelvis CT 10/15/16 1045 Signed Impressions: Service Date/Time: October 14:45 - CONCLUSION: 1. 8 cm left adnexal cystic mass. 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 No ascites or lymphadenopathy. 2. Hepatic steatosis. 3. Evidence of chronic pancreatitis. 4. Multiple nonobstructing renal calculi. Eugene Delacruz MD Objective Remarks GENERAL: This is a pleasant, well-nourished, well-developed patient, in no apparent distress. SKIN: No rashes, ecchymoses or lesions. Warm and dry. CARDIOVASCULAR: Regular rate and rhythm without 2/6 murmurs, gallops, or rubs. RESPIRATORY: Clear to auscultation. Breath sounds equal bilaterally. No wheezes , rales, or rhonchi. GASTROINTESTINAL: Abdomen soft,nondistended. Tender to light palpation, left lateral and left costovertebral tenderness. MUSCULOSKELETAL: Extremities without clubbing, cyanosis, or edema. No joint tenderness, effusion, or edema noted. NEUROLOGICAL: Awake and alert. Oriented to place, person, time. Motor and sensory grossly within normal limits. Normal speech. A/P Problem List: (1) Intractable nausea and vomiting ICD Code: R11.2 Status: Acute (2) Pancreatitis, chronic ICD Code: K86.1 Status: Acute (3) Pancreatitis, acute ICD Code: K85.90 Status: Acute Assessment and Plan Patient is a 51-year-old female with primary medical history of borderline diabetes, Crohn's disease, ulcerative colitis, bilateral hip dysplasia, hepatitis B, hypertension who came into the hospital secondary to worsening abdominal pain, nausea and vomiting. Pancreatitis, acute on chronic Abdominal pain, nausea, vomiting Lactic acid 2.9 on admission, repeat LA back to normal. Abdominal and pelvic CT showed 1. 8 CM left adnexal cystic mass. 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 No side effects or lymphadenopathy. 2. Hepatic steatosis. 3. Evidence of chronic pancreatitis. 4. Multiple nonobstructing renal calculi Lipase 218, trend Nothing by mouth, advance diet as tolerated to CLD Zofran for nausea Pantoprazole 40 mg IV daily IV fluids NS 100ml/hr for hydration IV pain medication morphine Consult GI Dr. Cha, her GI, had recent colonoscopy Acute kidney injury, improving Tachycardia- resolved Possibly secondary to dehydration EKG reviewed showed atrial tachycardia with short SC interval, no QT prolongation Continue IV fluids for hydration Avoid nephrotoxins Monitor kidney indices Hypokalemia Replaced with IV potassium on admission Monitor and replace as need Hyponatremia IV fluids for now Check BMP tomorrow Cough Chest x-ray showed old granulomatous disease. No acute cardiopulmonary disease identified Reports seasonal allergies taking Claritin at home Cont Flonase History of hypertension Monitor BP trend. Not on any medications History of hepatitis B Hepatic steatosis. Total bili 1.2, AST 40, ALT 31, alkaline phosphatase 107 on admission. Monitor. Borderline DM Diet controlled Check HgA1C Insulin sliding scale. Monitor Accu-Cheks. Monitor for hypoglycemia. If blood glucose is low may change fluids to D5 NS DVT prop SCD Code Status Full code Discussed Condition With Patient, nurse Magy Sinclair MD Oct 16, 2016 08:18
[2016-10-16 08:42] LABS: HEMATOCRIT 31.3 % (35.0-46.0); MEAN CELL VOLUME 92.2 FL (80.0-100.0); MEAN CORPUSCULAR HEMOGLOBIN 29.8 PG (27.0-34.0); MEAN CORPUSCULAR HGB CONC 32.3 % (32.0-36.0); PLATELET COUNT 187 TH/MM3 (150-450); RED CELL DISTRIBUTION WIDTH 17.7 % (11.6-17.2); REVIEW FLAG FINAL
[2016-10-16] MEDS ORDERED: MISCELLANEOUS NURSING INFORMATION ONE (09:00)
[2016-10-16 09:31] LABS: ALKALINE PHOSPHATASE 76 U/L (45-117); ALT (GPT) 25 U/L (10-53); ANION GAP 9 MEQ/L (5-15); AST (GOT) 32 U/L (15-37); BLOOD UREA NITROGEN 16 MG/DL (7-18); CHLORIDE 105 MEQ/L (98-107); GLOMERULAR FILTRATION RATE 101 ML/MIN (>89); SODIUM (NA) 139 MEQ/L (136-145); TOTAL BILIRUBIN ADULT 0.8 MG/DL (0.2-1.0)
[2016-10-16] MEDS: FLUTICASONE PROPIONATE 50 MCG/ACT 16 GM NASAL SPRAY NASAL SCH ×2 (09:58→23:03)
[2016-10-16] MEDS: SODIUM CHLORIDE 0.9% FLUSH 10 ML FLUSH IV FLUSH SCH ×2 (09:59→23:04)
[2016-10-16] MEDS: NICOTINE 7 MG/24 HR PATCH T-DERMAL SCH (10:07)
--- NOTE | 2016-10-16 10:43 | PD.CONS ---
GI Consult GI Consult Full consult dictated ASSESSMENT/PLAN: 1. N/v resolved 2. Chronic pancreatitis 3. 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 recent EGD/colon negative bx for celiac, Crohn's disease or ulcerative colitis 5. ETOh use 6. ovarian mass PLAN 1. CLD advance as tolerated 2. Creon panc enzymes 3. Your workup for ovarian mass. It was a pleasure seeing Jeff Rabago . Thank you for this consult. Entered by: Vernell Baez MD Oct 16, 2016 10:43
[2016-10-16 12:00] VITALS: BP 119/55; PULSE 76; RESP 20; TEMP 97.3; O2SAT 100
--- NOTE | 2016-10-16 12:17 | EKG ---
Date Performed: 10/15/2016 Time Performed: 10:51:21 PTAGE: 51 years EKG: ECTOPIC ATRIAL TACHYCARDIA WITH SHORT [place] INTERVAL NONSPECIFIC ST & T-WAVE ABNORMALITY ABNOR MAL RHYTHM ECG Compared to prior tracing no significant change PREVIOUS TRACING : 08/07/2004 08.30 DOCTOR: Jose C Redding Interpretating Date/Time 10/16/2016 12:17:05
[2016-10-16] MEDS: LIPASE/PROTEASE/AMYLASE (24,000/76,000/120,000) CAP PO SCH ×2 (14:14→19:00)
--- NOTE | 2016-10-16 14:47 | MB ---
cc: JOSEY HUIZAR DATE OF CONSULTATION: 10/16/2016 DATE OF : 1965 ENDOSCOPIST: Josey Huizar MD. PRIMARY GASTROINTESTINAL PHYSICIAN: Dr. Shabbir Ramachandran. REASON FOR CONSULTATION Nausea and vomiting, abdominal discomfort, diarrhea, this is a 51 year-old female who was recently seen in the office, From the abdominal discomfort diarrhea this is a 51-year-old female who was recently seen in the office with Dr. Ramachandran for longstanding history of diarrhea, abdominal discomfort, questionable history of inflammatory bowel disease. She apparently has been told of Crohn disease or ulcer colitis 20+ years ago. She was requested to undergo workup including detailed lab work, Stool studies, imaging tests, and endoscopy and colonoscopy. She did not complete any of her lab work, but it eventually undergo an esophagogastroduodenoscopy and colonoscopy most recently on the October 08. The esophagogastroduodenoscopy is significant for gastritis, biopsy negative for H pylori biopsies of the small bowel negative for celiac disease or evidence of inflammatory bowel disease. Her colonoscopy was also done which was normal term and ileum and normal. Random biopsies throughout the colon did not reveal evidence of microscopic colitis or inflammatory bowel disease. No clear endoscopic evidence of Crohn's or ulcerative last was noted. She had a relatively to associate uncomplicated postop. And was discharged home several days after she came back to after she came to the emergency room complaining of abdominal discomfort and persistent nausea and vomiting, intractable day. 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 No ascites. No lymphadenopathy was noted hepatic steatosis was noted evidence of chronic pancreatitis and multiple renal calculi was identified. Specifically in the pancreas multiple calcifications were identified in the head of pancreas suggesting chronic pancreatitis. GI was consulted for further workup and help in management in the during the admission she has she has been receiving IV fluids with improvement of her nausea, vomiting. PAST MEDICAL HISTORY 1. Diabetes mellitus 2. visual impairment 3. Questionable history of inflammatory bowel disease, although recent endoscopy and tells to reveal any abnormalities. 4. History of hepatitis B 5. Hypertension 6. Anxiety, depression. 7. Mitral valve prolapse. PAST SURGICAL HISTORY x2, right knee repair recent EGD and colonoscopy on October 08 as described above. ALLERGIES PENICILLIN AMOXICILLIN Unclear reaction. HOME MEDICATIONS: Please see MAR for complete list; some of the ones reported are; 1. Bupropion 2. Diclofenac 3. trazodone 4. Emetrol 5. [place] 6. Zoloft FAMILY HISTORY: 1. family history of diabetes. 2. No GI malignancies. SOCIAL HISTORY Half pack a day smoking history. No illicit drug use, has been a heavy drinker for multiple years recently she admitted that she cut down her drinking to only on weekends today she tells me that she has not drank in the last one month. REVIEW OF SYSTEMS 12 point review of system was obtained which was negative or noncontributory except for the above-mentioned in the history of present illness. PHYSICAL EXAMINATION VITAL SIGNS: 96.8, 75, 20, 121/75, 98% on room air. IN GENERAL: Alert oriented. No focal deficits, mucosa moist and pink. HEAD, EYES, EARS, NOSE, AND THROAT: Extraocular movements are spontaneous, intact. NECK: No cervical lymphadenopathy. No jugular venous distention noted. No bruits noted. CARDIOVASCULAR SYSTEM: Normal rate, rhythm. RESPIRATORY: No wheezing, respirations nonlabored. ABDOMEN: The abdomen is soft, nontender, nondistended, bowels sounds in all four quadrants. No splenomegaly appreciated. Slight hepatomegaly noted. No periumbilical ecchymosis. GENITOURINARY: No costovertebral angle tenderness noted. LYMPHATICS: No lymphadenopathy identified. MUSCULOSKELTAL: Equal in the upper and lower extremities. NEUROLOGIC: Alert and oriented, no focal deficits. PSYCHIATRIC: Psychiatric cooperative, appropriate mood affect. LABORATORY DATA WBC 7, hemoglobin 10.1 platelet count of 187, sodium 130 potassium 3.0, chloride 105, bicarb 25, BUN 16, creatinine 0.62, AST 32, ALT 25, alk phos 76, lipase 218, total protein 3.3, total bili 0.8, lactic acid 1.0, INR 0.9. Urinalysis positive moderate leukocyte esterase IMPRESSION 1. Episodic nausea, vomiting, currently resolved etiology may be secondary to chronic pancreatitis. 2. Chronic pancreatitis changes noted on CT scan, likely the cause of some of her symptoms including; nausea and vomiting, intermittent pain and diarrhea, secondary to longstanding alcohol abuse. 1. Longstanding history diarrhea. With recent endoscopic workup is negative for inflammatory bowel disease or microscopic colitis. Suspect secondary to chronic exocrine pancreatic insufficiency. 2. Alcohol abuse in the past. 3. Several CT scan showing an adnexal mass which may need further workup. RECOMMENDATIONS 1. Continue IV hydration. 2. Start clear liquid diet advanced as tolerated. 3. Will start pancreatic enzymes Creon 24,000 units 2 tablets with meal one with a snack, may go up to 36,000, lipase units, if available on formulary. 4. Stool studies including fecal elastase. 5. ER further workup for the had adnexal ovarian mass. 6. No urgent endoscopic workup needed at this time. Thank you for allowing <<9:11>> clinic to participate in the care of the patient. We will follow along with you to make recommendation as per the patients clinical course. MD JERICHO Nixon/gregoria /10:33 AM /2:11 PM
[2016-10-16 16:11] VITALS: BP 118/71; PULSE 71; RESP 20; TEMP 96.6; O2SAT 95
[2016-10-16] MEDS ORDERED: POTASSIUM CHLORIDE 10 MEQ CONTROLLED RELEASE TAB PO ONE (17:00)
[2016-10-16] MEDS: PANTOPRAZOLE SODIUM 40 MG VIAL IV PUSH SCH (19:00)
[2016-10-16 20:00] VITALS: BP 110/64; PULSE 80; RESP 18; TEMP 97.3; O2SAT 98
[2016-10-16] MEDS: REMOVE OLD PATCH T-DERMAL SCH (21:00)
[2016-10-17] MEDS: MORPHINE SULFATE 8 MG/ML INJ IV PUSH PRN ×2 (02:42→21:59)
[2016-10-17] MEDS: INSULIN ASPART SUPPLEMENTAL SCALE SQ SCH ×4 (06:18→21:55)
[2016-10-17 08:00] VITALS: BP 104/60; PULSE 77; RESP 20; TEMP 98; O2SAT 99
[2016-10-17] MEDS: FLUTICASONE PROPIONATE 50 MCG/ACT 16 GM NASAL SPRAY NASAL SCH ×2 (09:00→21:55)
[2016-10-17] MEDS: LIPASE/PROTEASE/AMYLASE (24,000/76,000/120,000) CAP PO SCH ×3 (09:00→17:22)
[2016-10-17] MEDS: NICOTINE 7 MG/24 HR PATCH T-DERMAL SCH (09:00)
[2016-10-17 09:17] LABS: ANION GAP 9 MEQ/L (5-15); AST (GOT) 29 U/L (15-37); BLOOD UREA NITROGEN 9 MG/DL (7-18); CHLORIDE 107 MEQ/L (98-107); GLOMERULAR FILTRATION RATE 127 ML/MIN (>89); POTASSIUM 3.2 MEQ/L (3.5-5.1); SODIUM (NA) 141 MEQ/L (136-145)
[2016-10-17 09:24] LABS: ALKALINE PHOSPHATASE 71 U/L (45-117); ALT (GPT) 24 U/L (10-53); TOTAL BILIRUBIN ADULT 0.4 MG/DL (0.2-1.0)
[2016-10-17] MEDS ORDERED: CREON24 PO (10:36)
[2016-10-17] MEDS ORDERED: NICO1DIS8 T-DERMAL (10:36)
[2016-10-17] MEDS ORDERED: FLUT50SP NASAL (10:38)
[2016-10-17] MEDS ORDERED: NORC5TAB PO (10:38)
--- NOTE | 2016-10-17 10:38 | HHI.DS ---
Discharge Summary Admission Date Oct 15, 2016 at 17:24 Discharge Date: Oct 18, 2016 Admitting Diagnosis Intractable Nausea and vomiting (1) Intractable nausea and vomiting ICD Code: R11.2 Diagnosis: Principal (2) Pancreatitis, chronic ICD Code: K86.1 Diagnosis: Secondary (3) Pancreatitis, acute ICD Code: K85.90 Procedures none Brief History - From Admission Patient is a 51-year-old female with primary medical history of borderline diabetes, Crohn's disease, ulcerative colitis, bilateral hip dysplasia, hepatitis B, hypertension who came into the hospital secondary to worsening abdominal pain, nausea and vomiting. 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 Ramachandran and had a colonoscopy done last . However, Wednesday she started to have continued abdominal pain, nausea, vomiting unable to hold down any of her food or drinks and is very weak. He reports vomiting every 1-1/2 hour has continued. States that she thought it started to go away but the pain and the nausea and vomiting is worse that she came in to be evaluated. Abdominal pain rated 9/10 radiating to the back, aggravated by mouth intake, unrelieved by anything. Patient has been given Zofran and she states that it helped her with the vomiting she is just nauseous but not as bad. She is also not voiding as much secondary to poor by mouth intake and last good bowel movement was Wednesday. States she has some pasty pudding-like stool occasionally but because she did not have any meals she is expecting smaller BMs. Complains of dizziness when standing up, headaches and believes that this is due to her vomiting. Denies fevers, chills, chest pain, palpitations, dysuria, hematuria. LMP: 12 years ago Labs are reviewed. WBC slightly elevated 11.2, hyponatremia 133, hypokalemia 3.2, chloride 96, BUN 35, creatinine 1.18, glucose 163 Lactate this a.m. 2.9, repeat lactate 1.0 Total bili 1.2, AST 40 Chest x-ray showed old granulomatous disease. No acute cardiopulmonary disease identified Abdominal and pelvic CT showed 1. 8 CM left adnexal cystic mass. 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 No side effects or lymphadenopathy. 2. Hepatic steatosis. 3. Evidence of chronic pancreatitis. 4. Multiple nonobstructing renal calculi CBC/BMP: 10/16/16 0808 10/17/16 0714 Significant Findings Laboratory Tests Test 10/15/16 10/15/16 10/16/16 10/17/16 10:45 12:00 08:08 07:14 White Blood Count 11.2 TH/MM3 (4.0-11.0) Red Cell Distribution Width 18.0 % 17.7 % (11.6-17.2) (11.6-17.2) Neutrophils (%) (Auto) 79.4 % (16.0-70.0) Monocytes (%) (Auto) 9.7 % (0.0-8.0) Neutrophils # (Auto) 8.9 TH/MM3 (1.8-7.7) Monocytes # (Auto) 1.1 TH/MM3 (0-0.9) Activated Partial 24.0 SEC Thromboplast Time (24.3-30.1) Sodium Level 133 MEQ/L (136-145) Potassium Level 3.2 MEQ/L 3.0 MEQ/L 3.2 MEQ/L (3.5-5.1) (3.5-5.1) (3.5-5.1) Chloride Level 96 MEQ/L (98-107) Blood Urea Nitrogen 35 MG/DL (7-18) Creatinine 1.18 MG/DL (0.50-1.00) Estimat Glomerular Filtration 48 ML/MIN (>89) Rate Random Glucose 163 MG/DL (74-106) Lactic Acid Level 2.9 mmol/L (0.4-2.0) Total Bilirubin 1.2 MG/DL (0.2-1.0) Aspartate Amino Transf 40 U/L (15-37) (AST/SGOT) Total Protein 9.3 GM/DL 6.1 GM/DL (6.4-8.2) (6.4-8.2) Urine Turbidity HAZY (CLEAR) Urine Protein 100 mg/dL (NEG-TRACE) Urine Ketones 10 mg/dL (NEG) Urine Occult Blood MOD (NEG) Urine Leukocyte Esterase MOD (NEG) Urine WBC 7 /hpf (0-5) Urine Bacteria OCC /hpf (NONE) Urine Mucus FEW /lpf (OCC) Urine Yeast (Budding) RARE (NONE) Red Blood Count 3.40 MIL/MM3 (4.00-5.30) Hemoglobin 10.1 GM/DL (11.6-15.3) Hematocrit 31.3 % (35.0-46.0) Calcium Level 8.4 MG/DL (8.5-10.1) Albumin 3.3 GM/DL 3.1 GM/DL (3.4-5.0) (3.4-5.0) Imaging Last Impressions Chest X-Ray 10/15/16 1045 Signed Impressions: Service Date/Time: October 11:00 - CONCLUSION: Old granulomatous disease. No acute cardiopulmonary disease identified. Eugene Delacruz MD Abdomen/Pelvis CT 10/15/16 1045 Signed Impressions: Service Date/Time: October 14:45 - CONCLUSION: 1. 8 cm left adnexal cystic mass. 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 No ascites or lymphadenopathy. 2. Hepatic steatosis. 3. Evidence of chronic pancreatitis. 4. Multiple nonobstructing renal calculi. Eugene Delacruz MD PE at Discharge GENERAL: This is a pleasant, well-nourished, well-developed patient, in no apparent distress. SKIN: No rashes, ecchymoses or lesions. Warm and dry. CARDIOVASCULAR: Regular rate and rhythm without 2/6 murmurs, gallops, or rubs. RESPIRATORY: Clear to auscultation. Breath sounds equal bilaterally. No wheezes , rales, or rhonchi. GASTROINTESTINAL: Abdomen soft,nondistended. Tender to light palpation, left lateral and left costovertebral tenderness. MUSCULOSKELETAL: Extremities without clubbing, cyanosis, or edema. No joint tenderness, effusion, or edema noted. NEUROLOGICAL: Awake and alert. Oriented to place, person, time. Motor and sensory grossly within normal limits. Normal speech. Pt update on day of discharge Feels much better , tolerates regular food . Less nausea. No more diarrhea after cholestyramine started. No fever or chills. Abd pain improved. Feels comfortable to go home. Will follow up as OP with DR Duarte JACOB and also to follow up as OP with PCP and compliance quality performance analyst for further eval of cystic mass Hospital Course Patient is a 51-year-old female with primary medical history of borderline diabetes, Crohn's disease, ulcerative colitis, bilateral hip dysplasia, hepatitis B, hypertension who came into the hospital secondary to worsening abdominal pain, nausea and vomiting. Pancreatitis, acute on chronic Abdominal pain, nausea, vomiting Lactic acid 2.9 on admission, repeat LA back to normal. 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 Consult compliance quality performance analyst/onc for evaluation. Abdominal and pelvic CT showed 1. 8 CM left adnexal cystic mass. 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 No side effects or lymphadenopathy. 2. Hepatic steatosis. 3. Evidence of chronic pancreatitis. 4. Multiple nonobstructing renal calculi Lipase 218 Tolerates diet to diabetic diet Zofran for nausea Pantoprazole 40 mg daily IV fluids NS 100ml/hr for hydration, DC as takes po IV pain medication morphine GI added creon by GI , also added colestyramine. Consult GI Dr. Ramachandran, her GI, had recent colonoscopy Seen by Dr Angelina JACOB . Recommends creon and colestyramine, prescriptions at discharge provided. Patient to follow up as OP with Dr Ramachandran Acute kidney injury, resolved with IVF Tachycardia- resolved Possibly secondary to dehydration EKG reviewed showed atrial tachycardia with short OK interval, no QT prolongation Continue IV fluids for hydration Avoid nephrotoxins Monitor kidney indices Hypokalemia Replaced with IV potassium on admission Monitor and replace as need Hyponatremia IV fluids for now Check BMP tomorrow Cough Chest x-ray showed old granulomatous disease. No acute cardiopulmonary disease identified Reports seasonal allergies taking Claritin at home Cont Flonase History of hypertension Monitor BP trend. Not on any medications History of hepatitis B Hepatic steatosis. Total bili 1.2, AST 40, ALT 31, alkaline phosphatase 107 on admission. Monitor. Borderline DM Diet controlled Check HgA1C Insulin sliding scale. Monitor Accu-Cheks. Monitor for hypoglycemia. DVT prop SCD Improved. Discharge home in stable condition. To follow up as OP with DR Duarte JACOB and also to follow up as OP with PCP and compliance quality performance analyst for further eval of cystic mass Pt Condition on Discharge: Stable Discharge Disposition: Discharge Home Discharge Time: > 30 minutes Discharge Instructions DIET: Follow Instructions for: Diabetic Diet Activities you can perform: Regular-No Restrictions Follow up Referrals: Gastroenterology - 2 Weeks [employer] - 1 Week PCP Follow-up - 3-5 Days New Medications: Cholestyramine (Cholestyramine) 4 Gm/Pkt Powd 4 GM PO Q8HR for digestion #90 PKT Fluticasone Nasal [place] (Fluticasone Nasal [place]) 50 Mcg/Act Naspr 1 SPRAY NASAL BID runny nose Days 30 BOTTLE Nicotine (Eq Nicotine Step 3) 7 Mg/24 Hr Dis 1 PATCH T-DERMAL DAILY smoking cessation #30 PATCH Pancrelipase (Creon) 24,000-76,000-120,000 Units Cap 2 CAP PO TID pancreatitis #90 CAP Continued Medications: Buspirone (Buspirone) 5 Mg Tab 5 MG PO TID Anxiety Ref 0 TAB Diclofenac Sodium ER 24 HR (Diclofenac Sodium ER 24 HR) 100 Mg Willie 100 MG PO DAILY PRN PAIN Ref 0 TAB Hydrocodone-Acetaminophen ([place]) 5-325 mg Tab 1-2 TAB PO Q4HR PRN PAIN #10 Ref 0 TAB (This prescription has been renewed) Ondansetron (Zofran) 4 Mg Tab 4 MG PO Q6HR PRN NAUSEA OR VOMITING #30 Ref 0 TAB Phosporated Carb(Dext-Fructos) (Emetrol Oral Solution) 118 Ml Solution 15-30 ML PO DIRECTED Do not drink any other fluids right before or for 15 minutes after taking a dose of Emetrol solution. Take Emetrol solution every 15 minutes or until symptoms go away. Do not take Emetrol solution for more than 1 hour (5 doses) without contacting your doctor. PRN NAUSEA OR VOMITING Sertraline (Zoloft) 50 Mg Tab 50 MG PO DAILY #30 Ref 0 TAB Trazodone (Trazodone) 50 Mg Tab 50 MG PO HS PRN SLEEP #30 Ref 0 TAB Magy Sinclair MD Oct 17, 2016 10:38
--- NOTE | 2016-10-17 10:41 | HHI.PR ---
Subjective Remarks In bed, tolerates CLD. Advance diet to regular diabetic diet. Patient still with some abdominal pain and nausea. Says she did not have any vomiting since yesterday in the afternoon. No fever or chills. Says she had diarrhea. Objective Vitals Vital Signs Date Time Temp Pulse Resp B/P Pulse Ox O2 Delivery O2 Flow Rate FiO2 10/17/16 08:00 98.0 77 20 104/60 99 10/17/16 02:47 18 10/16/16 20:00 97.3 80 18 110/64 98 10/16/16 16:11 96.6 71 20 118/71 95 10/16/16 12:00 97.3 76 20 119/55 100 Result Diagram: 10/16/16 0808 10/17/16 0714 Imaging Last Impressions Chest X-Ray 10/15/16 1045 Signed Impressions: Service Date/Time: , October 15, 2016 11:00 - CONCLUSION: Old granulomatous disease. No acute cardiopulmonary disease identified. Eugene Delacruz MD Abdomen/Pelvis CT 10/15/16 1045 Signed Impressions: Service Date/Time: , October 15, 2016 14:45 - CONCLUSION: 1. 8 cm left adnexal cystic mass. 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 No ascites or lymphadenopathy. 2. Hepatic steatosis. 3. Evidence of chronic pancreatitis. 4. Multiple nonobstructing renal calculi. Eugene Delacruz MD Objective Remarks GENERAL: This is a pleasant, well-nourished, well-developed patient, in no apparent distress. SKIN: No rashes, ecchymoses or lesions. Warm and dry. CARDIOVASCULAR: Regular rate and rhythm without 2/6 murmurs, gallops, or rubs. RESPIRATORY: Clear to auscultation. Breath sounds equal bilaterally. No wheezes , rales, or rhonchi. GASTROINTESTINAL: Abdomen soft,nondistended. Tender to light palpation, left lateral and left costovertebral tenderness. MUSCULOSKELETAL: Extremities without clubbing, cyanosis, or edema. No joint tenderness, effusion, or edema noted. NEUROLOGICAL: Awake and alert. Oriented to place, person, time. Motor and sensory grossly within normal limits. Normal speech. A/P Problem List: (1) Intractable nausea and vomiting ICD Code: R11.2 Status: Acute (2) Pancreatitis, chronic ICD Code: K86.1 Status: Acute (3) Pancreatitis, acute ICD Code: K85.90 Status: Acute Assessment and Plan Patient is a 51-year-old female with primary medical history of borderline diabetes, Crohn's disease, ulcerative colitis, bilateral hip dysplasia, hepatitis B, hypertension who came into the hospital secondary to worsening abdominal pain, nausea and vomiting. Pancreatitis, acute on chronic Abdominal pain, nausea, vomiting Lactic acid 2.9 on admission, repeat LA back to normal. 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 Consult advice clerk/onc for evaluation. Abdominal and pelvic CT showed 1. 8 CM left adnexal cystic mass. 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 No side effects or lymphadenopathy. 2. Hepatic steatosis. 3. Evidence of chronic pancreatitis. 4. Multiple nonobstructing renal calculi Lipase 218 Advance diet to diabetic diet Zofran for nausea Pantoprazole 40 mg IV daily IV fluids NS 100ml/hr for hydration IV pain medication morphine Added creon by GI , also added colestyramine. Consult GI Dr. Cha, her GI, had recent colonoscopy Acute kidney injury, resolved with IVF Tachycardia- resolved Possibly secondary to dehydration EKG reviewed showed atrial tachycardia with short DC interval, no QT prolongation Continue IV fluids for hydration Avoid nephrotoxins Monitor kidney indices Hypokalemia Replaced with IV potassium on admission Monitor and replace as need Hyponatremia IV fluids for now Check BMP tomorrow Cough Chest x-ray showed old granulomatous disease. No acute cardiopulmonary disease identified Reports seasonal allergies taking Claritin at home Cont Flonase History of hypertension Monitor BP trend. Not on any medications History of hepatitis B Hepatic steatosis. Total bili 1.2, AST 40, ALT 31, alkaline phosphatase 107 on admission. Monitor. Borderline DM Diet controlled Check HgA1C Insulin sliding scale. Monitor Accu-Cheks. Monitor for hypoglycemia. DVT prop SCD Code Status Full code Discussed Condition With Patient, nurse, GI service DC plan: Poss DC tomorrow if continues to improve, tolerates food and cleared by consultants (GI and advice clerk/onc ) Magy Sinclair MD Oct 17, 2016 10:40
--- NOTE | 2016-10-17 11:20 | HHI.GIFU ---
GI Follow-up Note Consult Follow-up Subjective: Patient laying in bed comfortably, no new complaints; still passing watery stool. She hasn't had a solid meal yet. Creon was started yesterday. Objective: PHYSICAL EXAMINATION: Vitals signs stable No fever HEENT: no jaundice. ABDOMEN: Soft, nondistended, mildly tender diffusely, mostly in the epigastrium SKIN: no jaundice. OFFICE CLIN ASST: alert and oriented times three. Available Data (labs, X- Rays, Procedues) : Labs reviewed. ASSESSMENT/PLAN:Chronic diarrhea, with weight loss, nausea/emesis and abdominal pain with radiation to her back. Endoscopic/colonoscopic findings/biopsies unremarkable. Studies negative for celiac disease. She has chronic calcific pancreatitis and a history of heavy alcohol use. We discussed this condition in detail. We'll continue the Creon, but we may need to increase the dose (one with the first bite of each meal and a second custodial into the meal.) We'll start cholestyramine to help bind the fluid. If the diarrhea improves, she may go home and follow up with Dr. Ramachandran. It was a pleasure seeing Jeff Rabago. . Entered by: Waqas Brand MD Oct 17, 2016 11:20
[2016-10-17 12:00] VITALS: BP 124/64; PULSE 83; RESP 20; TEMP 98.4; O2SAT 99
[2016-10-17] MEDS: CHOLESTYRAMINE 4 GM PACKET PO SCH ×2 (13:09→21:55)
[2016-10-17] MEDS ORDERED: POTASSIUM CHLORIDE 10 MEQ CONTROLLED RELEASE TAB PO ONE (14:15)
[2016-10-17 16:00] VITALS: BP 144/74; PULSE 78; RESP 20; TEMP 100; O2SAT 100
[2016-10-17] MEDS: ACETAMINOPHEN 325 MG TAB PO PRN (17:22)
[2016-10-17] MEDS: PANTOPRAZOLE SODIUM 40 MG VIAL IV PUSH SCH (17:23)
[2016-10-17 20:30] VITALS: BP 105/57; PULSE 79; RESP 17; TEMP 99; O2SAT 98
[2016-10-17] MEDS: SODIUM CHLORIDE 0.9% FLUSH 10 ML FLUSH IV FLUSH SCH ×2 (21:00→21:55)
[2016-10-17] MEDS: REMOVE OLD PATCH T-DERMAL SCH (21:55)
[2016-10-17] MEDS: SODIUM CHLOR 0.9% 1000 ML INJ 1,000 ML IV SCH (23:00)
[2016-10-18 00:40] VITALS: BP 108/60; PULSE 80; RESP 19; TEMP 98.9; O2SAT 97
[2016-10-18] MEDS: ACETAMINOPHEN 325 MG TAB PO PRN (01:08)
[2016-10-18 04:50] VITALS: BP 110/62; PULSE 89; RESP 20; TEMP 99; O2SAT 98
[2016-10-18] MEDS: CHOLESTYRAMINE 4 GM PACKET PO SCH (05:40)
[2016-10-18] MEDS: MORPHINE SULFATE 8 MG/ML INJ IV PUSH PRN (05:42)
[2016-10-18] MEDS: INSULIN ASPART SUPPLEMENTAL SCALE SQ SCH (07:00)
[2016-10-18 07:30] VITALS: BP 120/88; PULSE 69; RESP 18; TEMP 97.9; O2SAT 99
--- NOTE | 2016-10-18 08:13 | HHI.GIFU ---
GI Follow-up Note Consult Follow-up Subjective: Patient laying in bed comfortably, no new complaints except less diarrhea; no pain. She's been moving about in her wheelchair. She's anxious to go home as she feels significantly better. Objective: PHYSICAL EXAMINATION: Vitals signs stable No fever HEENT: EOMI ABDOMEN: Soft, nondistended, nontender BUILDING DISMANTLER: alert and oriented times three. Available Data (labs, X- Rays, Procedues) : ASSESSMENT/PLAN:Improved diarrhea and pain with increase in Creon dose and initiation of cholestyramine. OK to d/c from GI stand point on these two medications. F/U with Dr. Ramachandran in one to two weeks. It was a pleasure seeing Jeff Rabago. Entered by: Waqas Brand MD Oct 18, 2016 08:13
[2016-10-18] MEDS: NICOTINE 7 MG/24 HR PATCH T-DERMAL SCH (08:50)
[2016-10-18] MEDS: FLUTICASONE PROPIONATE 50 MCG/ACT 16 GM NASAL SPRAY NASAL SCH (08:52)
[2016-10-18] MEDS: LIPASE/PROTEASE/AMYLASE (24,000/76,000/120,000) CAP PO SCH (08:52)
[2016-10-18] MEDS ORDERED: CHOL4POW4 PO (09:11)
== END 2016-10-18 11:10 | disposition home or self-care (01) | DRG 439 ==
LOC: NEPC 10:22 → NEDA 17:24 → OBSVTOIN 17:24 → N05B 20:47
PROVIDERS: ADMIT Hospitalist; ATTEND Hospitalist
DX: K85.90 Acute pancreatitis without necrosis or infection, unspecified (principal); E87.1 Hypo-osmolality and hyponatremia; N17.9 Acute kidney failure, unspecified; K50.90 Crohn's disease, unspecified, without complications; I47.1 Supraventricular tachycardia; N20.0 Calculus of kidney; I10 Essential (primary) hypertension; E11.9 Type 2 diabetes mellitus without complications; K86.1 Other chronic pancreatitis; E87.6 Hypokalemia; I34.1 Nonrheumatic mitral (valve) prolapse; E86.0 Dehydration; G89.29 Other chronic pain; J45.909 Unspecified asthma, uncomplicated; K29.70 Gastritis, unspecified, without bleeding; N83.9 Noninflammatory disorder of ovary, fallopian tube and broad ligament, unspecified; H54.7 Unspecified visual loss; F17.210 Nicotine dependence, cigarettes, uncomplicated; F10.10 Alcohol abuse, uncomplicated
CPT/HCPCS: 71010; 74177; 80053; 81001; 82948; 83036; 83605; 83690; 85025; 85027; 85610; 85730; 87040; 93005; 96361; 96374; 96376; C9113; J2270; J2405; J3480; J7030; Q9963; Q9967

== ENCOUNTER 2016-11-21 14:59 | Observation (INO) | payer MEDICARE, OTHER ==
[~2016-11-21] VITALS: Ht 165.1 cm; Wt 50.0 kg
[~2016-11-21 14:59] MED LIST changes: +BUSP5TAB PO; +CHOL4POW4 PO; +CREON24 PO; +DICL100T PO; +EMETSOL PO; +FLUT50SP NASAL; -NAPR500 PO; +NICO1DIS8 T-DERMAL; +NORC5TAB PO; +TRAZ50TA12 PO; +ZOFR4TAB PO; +ZOLO50TA PO
[2016-11-21 15:01] VITALS: BP 107/78; PULSE 105; RESP 16; TEMP 97.8; O2SAT 98
[2016-11-21] MEDS ORDERED: CLAR10CA3 PO (15:17)
[2016-11-21] MEDS ORDERED: IBUP200T2 PO (15:17)
[2016-11-21] MEDS ORDERED: SODIUM CHLORIDE 0.9% FLUSH 10 ML FLUSH IVF PRN (15:30)
--- NOTE | 2016-11-21 15:40 | RADRPT ---
EXAM DATE/TIME: 11/21/2016 15:18 [facility] COMPARISON: CHEST SINGLE AP, October 15, 2016, 11:00. INDICATIONS : Chest pain and short of breath. MEDICAL HISTORY : Chronic obstructive pulmonary disease. Diabetes mellitus type II. Emphysema. Hepatitis B. Afib. SURGICAL HISTORY : section. ENCOUNTER: Initial ACUITY: 1 day PAIN SCORE: 8/10 LOCATION: Bilateral chest FINDINGS: Redemonstration of calcified granuloma in the right upper lobe. Lungs otherwise clear. Cardiomediasti nal contours are within normal limits. Bony thorax is intact. CONCLUSION: 1. No acute cardiopulmonary disease. Semaj Rodriguez MD on November 21, 2016 at 15:38 Board Certified Radiologist. This report was verified electronically.
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
[2016-11-21 16:04] LABS: BASOPHIL # 0.1 TH/MM3 (0-0.2); BASOPHIL % 1.1 % (0.0-2.0); EOSINOPHIL # 0.1 TH/MM3 (0-0.4); EOSINOPHIL % 1.8 % (0.0-4.0); HEMATOCRIT 35.2 % (35.0-46.0); HEMO FLAGS DIFF FINAL; LYMPH % 23.1 % (9.0-44.0); LYMPHOCYTE # 1.5 TH/MM3 (1.0-4.8); MEAN CELL VOLUME 93.1 FL (80.0-100.0); MEAN CORPUSCULAR HEMOGLOBIN 29.9 PG (27.0-34.0); MEAN CORPUSCULAR HGB CONC 32.1 % (32.0-36.0); MONO % 11.3 % (0.0-8.0); NEUT % 62.7 % (16.0-70.0); PLATELET COUNT 275 TH/MM3 (150-450); RED BLOOD COUNT 3.78 MIL/MM3 (4.00-5.30); RED CELL DISTRIBUTION WIDTH 17.7 % (11.6-17.2); WHITE BLOOD COUNT 6.4 TH/MM3 (4.0-11.0)
[2016-11-21 16:09] LABS: APTT (PATIENT) 24.6 SEC (24.3-30.1); INTERNATIONAL NORMALIZED RATIO 0.9 RATIO
[2016-11-21 16:20] LABS: ALT (GPT) 36 U/L (10-53); ANION GAP 10 MEQ/L (5-15); AST (GOT) 39 U/L (15-37); BICARBONATE 23.8 MEQ/L (21.0-32.0); BLOOD UREA NITROGEN 11 MG/DL (7-18); CHLORIDE 107 MEQ/L (98-107); GLOMERULAR FILTRATION RATE 79 ML/MIN (>89); MAGNESIUM 1.8 MG/DL (1.5-2.5); POTASSIUM 3.9 MEQ/L (3.5-5.1); SODIUM (NA) 141 MEQ/L (136-145)
[2016-11-21 16:24] LABS: ALKALINE PHOSPHATASE 83 U/L (45-117); TOTAL BILIRUBIN ADULT 0.4 MG/DL (0.2-1.0)
[2016-11-21 16:27] LABS: CREATINE KINASE 54 U/L (26-192)
--- NOTE | 2016-11-21 16:42 | PD ---
Physical Exam Narrative GENERAL: Well-nourished, well-developed patient. Well-appearing SKIN: Warm and dry. HEAD: Normocephalic and atraumatic. EYES: No injection or drainage. ENT: No nasal drainage noted. NECK: Supple, trachea midline. CARDIOVASCULAR: Regular rate and rhythm RESPIRATORY: No increased effort. No accessory muscle use. NEUROLOGICAL: Awake and alert. Motor and sensory grossly within normal limits. Normal speech. Data Data Last Documented VS Vital Signs Date Time Temp Pulse Resp B/P Pulse Ox O2 Delivery O2 Flow Rate FiO2 11/21/16 15:33 Room Air 11/21/16 15:01 97.8 105 16 107/78 98 Orders Electrocardiogram (11/21/16 ) Ckmb (Isoenzyme) Profile (11/21/16 15:17) Complete Blood Count With Diff (11/21/16 15:17) Comprehensive Metabolic Panel (11/21/16 15:17) Magnesium (Mg) (11/21/16 15:17) Prothrombin Time / Inr (Pt) (11/21/16 15:17) Act Partial Throm Time (Ptt) (11/21/16 15:17) Troponin I (11/21/16 15:17) Lipase (11/21/16 15:17) Chest, Single Ap (11/21/16 15:17) Ecg Monitoring (11/21/16 15:17) Bilateral Bp Monitoring (11/21/16 15:17) Iv Access Insert/Monitor (11/21/16 15:17) Oximetry (11/21/16 15:17) Sodium Chloride 0.9% Flush (Ns Flush) (11/21/16 15:30) Labs Laboratory Tests Test 11/21/16 15:25 White Blood Count 6.4 TH/MM3 Red Blood Count 3.78 MIL/MM3 Hemoglobin 11.3 GM/DL Hematocrit 35.2 % Mean Corpuscular Volume 93.1 FL Mean Corpuscular Hemoglobin 29.9 PG Mean Corpuscular Hemoglobin 32.1 % Concent Red Cell Distribution Width 17.7 % Platelet Count 275 TH/MM3 Mean Platelet Volume 9.3 FL Neutrophils (%) (Auto) 62.7 % Lymphocytes (%) (Auto) 23.1 % Monocytes (%) (Auto) 11.3 % Eosinophils (%) (Auto) 1.8 % Basophils (%) (Auto) 1.1 % Neutrophils # (Auto) 4.0 TH/MM3 Lymphocytes # (Auto) 1.5 TH/MM3 Monocytes # (Auto) 0.7 TH/MM3 Eosinophils # (Auto) 0.1 TH/MM3 Basophils # (Auto) 0.1 TH/MM3 CBC Comment DIFF FINAL Differential Comment Prothrombin Time 10.0 SEC Prothromb Time International 0.9 RATIO Ratio Activated Partial 24.6 SEC Thromboplast Time Sodium Level 141 MEQ/L Potassium Level 3.9 MEQ/L Chloride Level 107 MEQ/L Carbon Dioxide Level 23.8 MEQ/L Anion Gap 10 MEQ/L Blood Urea Nitrogen 11 MG/DL Creatinine 0.77 MG/DL Estimat Glomerular Filtration 79 ML/MIN Rate Random Glucose 83 MG/DL Calcium Level 10.3 MG/DL Magnesium Level 1.8 MG/DL Total Bilirubin 0.4 MG/DL Aspartate Amino Transf 39 U/L (AST/SGOT) Alanine Aminotransferase 36 U/L (ALT/SGPT) Alkaline Phosphatase 83 U/L Total Creatine Kinase 54 U/L Troponin I LESS THAN 0.02 NG/ML Total Protein 8.4 GM/DL Albumin 4.2 GM/DL Lipase 334 U/L [facility] Supervised Visit with ROSANNE: Yes Interpretation(s) CBC & BMP Diagram 11/21/16 15:25 Last 24 hours Impressions Chest X-Ray 11/21/16 1517 Signed Impressions: Service Date/Time: Monday, November 21, 2016 15:18 - CONCLUSION: 1. No acute cardiopulmonary disease. Semaj Rodriguez MD Narrative Course I, Dr. burnett, have reviewed the advance practice practitioner's documentation and am in agreement, met with the patient face to face, made the diagnosis, and the medical decision making was done by me. *My assessment and Findings: 51 y/o female presents with chest pain that she states feels similar to a prior heart attack she had about 8 years ago. Initial testing is negative. Agrees to chest pain center observation Diagnosis Primary Impression: Chest pain Admitting Information Admitting Physician Requests: Observation Rosalva Burnett MD Nov 21, 2016 16:41
[2016-11-21] MEDS ORDERED: SODIUM CHLORIDE 0.9% FLUSH 10 ML FLUSH IV FLUSH PRN (16:45)
[2016-11-21] MEDS ORDERED: ONDANSETRON HCL 4 MG/2 ML VIAL IV PRN (16:45)
[2016-11-21] MEDS ORDERED: ACETAMINOPHEN 500 MG CPLT PO PRN (16:45)
[2016-11-21] MEDS ORDERED: ASPIRIN 81 MG CHEW TAB PO ONE (16:45)
[2016-11-21] MEDS ORDERED: NITROGLYCERIN 0.4 MG SL 25 TABS/BTL SL PRN (16:45)
[2016-11-21] MEDS ORDERED: METF1000 PO (16:57)
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
[2016-11-21] MEDS ORDERED: DEXTROSE 50% IN WATER 50 ML VIAL(D50) IV PRN (17:15)
[2016-11-21] MEDS ORDERED: RESP: ALBUTEROL 2.5 MG/IPRATROPIUM 0.5 MG NEB (PRN) INH (17:15)
[2016-11-21] MEDS ORDERED: cloNIDine HCL 0.1 MG TAB PO PRN (17:15)
[2016-11-21] MEDS ORDERED: ACETAMINOPHEN/HYDROcodone 325 MG/5 MG TAB PO PRN (17:15)
[2016-11-21] MEDS ORDERED: GLUCAGON 1 MG/ML VIAL IM/SQ PRN (17:15)
[2016-11-21] MEDS ORDERED: KETOROLAC TROMETHAMINE 30 MG/ML (IVP) VIAL IVP ONE (17:30)
[2016-11-21 18:01] VITALS: BP 98/64; PULSE 79; RESP 16; TEMP 98.1; O2SAT 100
[2016-11-21] MEDS: LIPASE/PROTEASE/AMYLASE (24,000/76,000/120,000) CAP PO SCH (18:26)
[2016-11-21] MEDS: busPIRone HCL 5 MG TAB PO SCH (18:26)
[2016-11-21 19:25] LABS: CREATINE KINASE 52 U/L (26-192)
[2016-11-21 19:53] VITALS: O2SAT 98
[2016-11-21 20:10] VITALS: PULSE 80
[2016-11-21 20:24] VITALS: BP 108/68; PULSE 82; RESP 18; TEMP 98.5; O2SAT 97
[2016-11-21] MEDS: INSULIN ASPART SUPPLEMENTAL SCALE SQ SCH (21:00)
[2016-11-21 22:17] LABS: CREATINE KINASE 50 U/L (26-192)
[2016-11-21] MEDS: SODIUM CHLORIDE 0.9% FLUSH 10 ML FLUSH IV FLUSH SCH (22:36)
[2016-11-22] VITALS (8 sets, daily range): BP systolic 98–125; BP diastolic 57–69; PULSE 71–90; RESP 16–18; TEMP 98.4–98.5; O2SAT 96–100
[2016-11-22] MEDS: INSULIN ASPART SUPPLEMENTAL SCALE SQ SCH ×2 (07:00→11:00)
[2016-11-22] MEDS: SODIUM CHLORIDE 0.9% FLUSH 10 ML FLUSH IV FLUSH SCH (08:53)
[2016-11-22] MEDS: LIPASE/PROTEASE/AMYLASE (24,000/76,000/120,000) CAP PO SCH (08:54)
[2016-11-22] MEDS: busPIRone HCL 5 MG TAB PO SCH (08:54)
[2016-11-22] MEDS ORDERED: LORATADINE 10 MG TAB PO SCH (09:00)
[2016-11-22] MEDS ORDERED: REGADENOSON INJ 0.4 MG/5 ML SYR ONE (10:18)
--- NOTE | 2016-11-22 11:47 | RADRPT ---
EXAM DATE/TIME: 11/22/2016 09:46 [facility] COMPARISON: No previous studies available for comparison. INDICATIONS : Mid chest pain for one day. Angina. Myocardial infarction. DOSE: 26.1 mCi Tc99m Myoview at stress. 8.8 mCi Tc99m Myoview at rest. 0.4 mg Lexiscan STRESS SYMPTOMS: None noted. EJECTION FRACTION: 61% MEDICAL HISTORY : Hypertension. Diabetes mellitus type 2. SURGICAL HISTORY : section. ENCOUNTER: Initial ACUITY: 1 day PAIN SCALE: 5/10 LOCATION: Midsternal chest TECHNIQUE: The patient underwent pharmacologic stress with infusion of prescribed dose. Continuous ECG tracing was monitored during stress. Gated SPECT imaging was performed after stress and conventional SPECT i maging was performed at rest. The examination was performed on a SPECT/CT scanner, both attenuation and non-corrected datasets were reviewed. FINDINGS: DISTRIBUTION: The maximum perfused segment at stress is in the <anterolateral and posterior mid> wall. PERFUSION STUDY: The pattern of perfusion at stress is within normal limits. GATED STUDY: There is intact wall motion and thickening without hypokinetic or dyskinetic segments. CONCLUSION: No significant ischemia or wall motion abnormalities noted. RISK CATEGORY: Low (<1% Annual Mortality Rate) Benedict Quintanilla MD on November 22, 2016 at 11:45 Board Certified Radiologist. This report was verified electronically.
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
--- NOTE | 2016-11-22 12:11 | EKG ---
Date Performed: 11/21/2016 Time Performed: 21:57:02 PTAGE: 51 years EKG: Sinus rhythm NORMAL ECG PREVIOUS TRACING : 11/21/2016 18.45 DOCTOR: Jose C Redding Interpretating Date/Time 11/22/2016 12:09:14
--- NOTE | 2016-11-22 12:11 | EKG ---
Date Performed: 11/21/2016 Time Performed: 18:45:31 PTAGE: 51 years EKG: Sinus rhythm NORMAL ECG PREVIOUS TRACING : 11/21/2016 15.20 DOCTOR: Jose C Redding Interpretating Date/Time 11/22/2016 12:09:21
--- NOTE | 2016-11-22 12:12 | EKG ---
Date Performed: 11/21/2016 Time Performed: 15:20:11 PTAGE: 51 years EKG: Sinus rhythm WITH OCCASIONAL SUPRAVENTRICULAR PREMATURE COMPLEXES BORDERLINE ECG PREVIOUS TRACING : 10/15/2016 10.51 DOCTOR: Jose C Redding Interpretating Date/Time 11/22/2016 12:09:40
--- NOTE | 2016-11-22 12:16 | TR ---
Date Performed: 11/22/2016 Time Performed: 10:27:56 DOCTOR: Jose C Redding DRUG LIST: CLINICAL HISTORY: ANGINA REASON FOR TEST: Angina REASON FOR ENDING: OBSERVATION: CONCLUSION: Lexiscan stress test was performed under standard four minute protocol. Radionuclide was injected one minute prior to ending the test. ST depression is noted in the inferior leads sugge stive but not meeting criteria for definitive ischemia. Nuclear imaging and interpretation are pendin g. COMMENTS: Nuc scanning is entirely negative for ischemia.
--- NOTE | 2016-11-22 14:06 | HHI.DCPOC ---
Discharge Care Plan Diagnosis: (1) Chest pain (2) Tobacco abuse Goals to Promote Your Health * To prevent worsening of your condition and complications * To maintain your health at the optimal level Directions to Meet Your Goals Take your medications as prescribed Follow your dietary instruction Follow activity as directed Keep your appointments as scheduled Take your immunizations and boosters as scheduled If your symptoms worsen call your PCP, if no PCP go to Urgent Care Center or Emergency Room Smoking is Dangerous to Your Health. Avoid second hand smoke Call the 24-hour hour crisis hotline for domestic abuse at [facility] Nov 22, 2016 14:06
== END 2016-11-22 15:00 | disposition home or self-care (01) ==
LOC: NEPE 14:59 → NEDA 16:44 → NEPHCDU 18:03
PROVIDERS: ADMIT Internal Medicine Interventional Cardiology; ATTEND Internal Medicine Interventional Cardiology
DX: R07.89 Other chest pain (principal); M25.559 Pain in unspecified hip; G89.29 Other chronic pain; Q65.89 Other specified congenital deformities of hip; H54.8 Legal blindness, as defined in USA; R06.02 Shortness of breath; R61 Generalized hyperhidrosis; R07.2 Precordial pain; I10 Essential (primary) hypertension; E11.9 Type 2 diabetes mellitus without complications; E78.5 Hyperlipidemia, unspecified; J44.9 Chronic obstructive pulmonary disease, unspecified; J45.909 Unspecified asthma, uncomplicated; I25.2 Old myocardial infarction; K86.1 Other chronic pancreatitis; I20.9 Angina pectoris, unspecified; I48.91 Unspecified atrial fibrillation; J84.10 Pulmonary fibrosis, unspecified; B19.10 Unspecified viral hepatitis B without hepatic coma; F41.9 Anxiety disorder, unspecified; F32.9 Major depressive disorder, single episode, unspecified; F17.210 Nicotine dependence, cigarettes, uncomplicated; Z79.899 Other long term (current) drug therapy; Z79.84 Long term (current) use of oral hypoglycemic drugs; Z59.0 Homelessness
CPT/HCPCS: 71010; 78452; 80053; 82550; 82948; 83690; 83735; 84484; 85025; 85610; 85730; 93005; 93017; 99285; A9502; G0378; J1885; J2785